=== PATIENT | male | born 1950 ===

== ENCOUNTER 2017-11-24 08:46 | Observation (INO) | payer BC ==
[2017-11-24 08:46] VITALS: BMI 25.1
[2017-11-24 10:02] LABS: BASO % 0.8 % (0.0-2.0); EOS # 0.2 K/uL (0.0-0.7); HEMOGLOBIN 14.4 g/dL (12.0-18.0); LYMPH # 1.7 K/uL (1.0-4.3); LYMPH % 29.7 % (20.0-40.0); MEAN CELL VOLUME 88.2 fl (80.0-94.0); MEAN CORPUSCULAR HEMOGLOBIN 29.4 pg (27.0-31.0); MEAN CORPUSCULAR HGB CONC 33.4 g/dL (33.0-37.0); MEAN PLATELET VOLUME 11.4 fl (7.2-11.7); MONO # 0.5 K/uL (0.0-0.8); MONO % 8.6 % (0.0-10.0); NEUT # 3.3 K/uL (1.8-7.0); NEUT % 56.9 % (50.0-75.0); NRBC % 0.1 % (0.0-0.0); RBC 4.88 Mil/uL (4.40-5.90); RED CELL DISTRIBUTION WIDTH 14.4 % (11.5-14.5); WHITE BLOOD COUNT 5.7 K/uL (4.8-10.8)
--- NOTE | 2017-11-24 10:08 | ED PDOC ---
Syncope/Near Syncope/Dizziness Time Seen by Provider: 11/24/17 09:18 Chief Complaint (Nursing): Dizziness/Lightheaded Chief Complaint (Provider): Dizziness/Lightheaded History Per: Patient History/Exam Limitations: no limitations Onset/Duration Of Symptoms: Days (greater than 12 hours ago, out of the time frame for TPA), Intermittent Episodes (x2 days) Current Symptoms Are (Timing): Still Present Additional Complaint(s): 67 year old male with medical history of HTN, presents to the emergency room for an evaluation of dizziness with room-spinning sensation since yesterday. Patient was accompanying a family member in the ED when he suddenly became dizzy and weak. He denies any head injury, chest pain, shortness of breath, fever, chills or vomiting. Patient states he has a right-sided headache that feels "like a balloon". He was able to eat 1 piece of bread prior to onset. PMD: Dr. Claude Yeung NIHSS Stroke Scale - Date/Time Evaluation Performed Date Performed: 11/24/17 Time Performed: 11:55 When Was NIHSS Performed: Baseline - How Severe is the Stroke Level of Consciousness: 0=Alert LOC to Questions: 0=Both comments correct LOC to commands: 0=Obeys both correctly Best Gaze: 0=Normal Visual: 0=No visual loss Facial: 0=Normal Motor Arm - Left: 0=No drift Motor Arm - Right: 0=No drift Motor Leg - Left: 0=No drift Motor Leg - Right: 0=No drift Limb Ataxia: 0=Absent Sensory: 0=Normal Best Language: 0=No aphasia Dysarthia: 0=Normal articulation Extinction & Inattention (Neglect): 0=Normal, no object Score: 0 Past Medical History Reviewed: Historical Data, Nursing Documentation, Vital Signs Vital Signs: Last Vital Signs Temp 98.1 F 11/24/17 09:11 Pulse 55 L 11/24/17 09:00 Resp 18 11/24/17 09:00 BP 146/83 11/24/17 09:00 Pulse Ox 98 11/24/17 09:00 - Medical History PMH: HTN, Hypercholesterolemia Denies: Chronic Kidney Disease - Surgical History Surgical History: Appendectomy - Family History Family History: States: Hypertension - Social History Current smoker - smoking cessation education provided: No Alcohol: None Drugs: Denies - Home Medications Home Medications: Ambulatory Orders Medication Instructions Recorded Aspirin [Aspirin Chewable] 81 mg PO DAILY #30 chew 11/26/17 Atorvastatin [Lipitor] 40 mg PO DAILY #30 tab 11/26/17 Clopidogrel [Plavix] 75 mg PO DAILY #30 tab 11/26/17 Losartan [Cozaar] 50 mg PO HS #30 tab 11/26/17 - Allergies Allergies/Adverse Reactions: Allergies Allergy/AdvReac Type Severity Reaction Status Date / Time egg Allergy RASH Verified 11/24/17 10:33 cortisone AdvReac RASH Verified 05/16/16 00:13 Review of Systems ROS Statement: Except As Marked, All Systems Reviewed And Found Negative Constitutional: Negative for: Fever, Chills Cardiovascular: Negative for: Chest Pain Respiratory: Negative for: Shortness of Breath Gastrointestinal: Negative for: Vomiting Neurological: Positive for: Headache (right-sided), Dizziness. Negative for: Other (head injury) Physical Exam - Reviewed Nursing Documentation Reviewed: Yes Vital Signs Reviewed: Yes - Physical Exam Appears: Positive for: Non-toxic, No Acute Distress Head Exam: Positive for: ATRAUMATIC, NORMAL INSPECTION, NORMOCEPHALIC Skin: Positive for: Normal Color Eye Exam: Positive for: Normal appearance ENT: Positive for: Normal ENT Inspection Neck: Positive for: Normal Cardiovascular/Chest: Positive for: Regular Rate, Rhythm, Chest Non Tender. Negative for: Murmur Respiratory: Positive for: Normal Breath Sounds. Negative for: Wheezing, Respiratory Distress Gastrointestinal/Abdominal: Positive for: Normal Exam, Soft. Negative for: Tenderness Back: Positive for: Normal Inspection Extremity: Positive for: Normal ROM (upper/lower with 5/5 strength). Negative for: Pedal Edema (bilateral), Deformity Neurologic/Psych: Positive for: Alert, nuclear technician II-XII (grossly intact), Oriented, Gait (stable). Negative for: Motor/Sensory Deficits, Aphasia, Facial Droop - Laboratory Results Result Diagrams: 11/24/17 09:53 11/24/17 09:53 - ECG O2 Sat by Pulse Oximetry: 98 (RA) Pulse Ox Interpretation: Normal Medical Decision Making Medical Decision Making: Initial Impression: Dizziness rule out stroke versus bleed pt has had symptoms for greater than 12 hours, closer to 24 hrs Initial Plan: * CT head without contrast * CMP * Troponin I * CBC * CXR * Antivert 25mg PO Time: 937 --Old charts reviewed: patient was evaluated in ED for a similar syncopal episode, secondary to medication effects. Time: 956 --Labs: no significant abnormality. Time: 1059 --CT head FINDINGS: HEMORRHAGE: No intracranial hemorrhage. BRAIN: Age related neuro degenerative findings including atrophy and microangiopathy are again identified diffusely and are stable. 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 No additional significant interval findings are appreciated including cortical edema. Posterior fossa contents appear stable as well as the brainstem. No suspicious extra-axial fluid collection identified. VENTRICLES: Unremarkable. No hydrocephalus. CALVARIUM: Unremarkable. PARANASAL SINUSES: Unremarkable as visualized. No significant inflammatory changes. MASTOID AIR CELLS: Unremarkable as visualized. No inflammatory changes. OTHER FINDINGS: None. IMPRESSION: No definitive acute CT intracranial findings although an interval but chronic small infarct is noted at the right basal ganglia superiorly. Age-appropriate age related neuro degenerative findings are reiterated. Time: 1148 --Discussed case with Dr. Yeung. --I gave ASA and called neurologist, Dr. Hanson as per Anjana --Patient made aware of all results and plan. States he is feeling slightly better after Meclizine. he is agreeable to admission. --Call made out to Dr. Hanson, he is away, awaiting coverage call back.. pt will need admission to rule out cerebellar stroke. Scribe Attestation: Documented by Daisy Patterson, acting as a scribe for Mello Reddy MD. Provider Scribe Attestation: All medical record entries made by the Scribe were at my direction and personally dictated by me. I have reviewed the chart and agree that the record accurately reflects my personal performance of the history, physical exam, medical decision making, and the department course for this patient. I have also personally directed, reviewed, and agree with the discharge instructions and disposition. Disposition - Clinical Impression Clinical Impression: Dizziness - Patient ED Disposition Is Patient to be Admitted: Yes Counseled Patient/Family Regarding: Studies Performed, Diagnosis - Disposition Disposition Time: 11:45 Condition: STABLE
[2017-11-24 10:20] LABS: ALB/GLOB RATIO 1.4 (1.0-2.1); ALT/SGPT 27 U/L (21-72); AST/SGOT 23 U/L (17-59); BLOOD UREA NITROGEN 18 mg/dl (9-20); CALCIUM 9.5 mg/dL (8.4-10.2); GFR AFRICAN-AMERICAN > 60; GFR NON-AFRICAN AMERICAN > 60
--- NOTE | 2017-11-24 11:01 | CT ---
Date of service: 11/24/2017 PROCEDURE: CT HEAD WITHOUT CONTRAST. HISTORY: headache COMPARISON: Noncontrast head CT 05/15/2016. TECHNIQUE: Axial computed tomography images were obtained through the head/brain without intravenous contrast. Radiation dose: Total exam DLP = 831.79 mGy-cm. This CT exam was performed using one or more of the following dose reduction techniques: Automated exposure control, adjustment of the mA and/or kV according to patient size, and/or use of iterative reconstruction technique. FINDINGS: HEMORRHAGE: No intracranial hemorrhage. BRAIN: Age related neuro degenerative findings including atrophy and microangiopathy are again identified diffusely and are stable. 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 No additional significant interval findings are appreciated including cortical edema. Posterior fossa contents appear stable as well as the brainstem. No suspicious extra-axial fluid collection identified. VENTRICLES: Unremarkable. No hydrocephalus. CALVARIUM: Unremarkable. PARANASAL SINUSES: Unremarkable as visualized. No significant inflammatory changes. MASTOID AIR CELLS: Unremarkable as visualized. No inflammatory changes. OTHER FINDINGS: None. IMPRESSION: No definitive acute CT intracranial findings although an interval but chronic small infarct is noted at the right basal ganglia superiorly. Age-appropriate age related neuro degenerative findings are reiterated.
--- NOTE | 2017-11-24 13:23 | RAD ---
Date of service: 11/24/2017 HISTORY: Dizziness. COMPARISON: 05/15/2016. FINDINGS: LUNGS: No active pulmonary disease. PLEURA: No significant pleural effusion identified, no pneumothorax apparent. CARDIOVASCULAR: No radiographic findings to suggest acute or significant cardiovascular disease. OSSEOUS STRUCTURES: No significant abnormalities. VISUALIZED UPPER ABDOMEN: Normal. OTHER FINDINGS: None. IMPRESSION: No active disease. No significant interval change compared to the prior examination(s).
[2017-11-24] MEDS ORDERED: AMLODIPIN PO SCH (22:00)
[2017-11-24] MEDS ORDERED: OLMESARTAN PO SCH (22:00)
[2017-11-24] MEDS ORDERED: HCTHIAZID PO SCH (22:00)
[2017-11-24] MEDS ORDERED: [UNRECOGNIZED DRUG - OTHER] PO SCH (22:00)
--- NOTE | 2017-11-25 08:56 | CP.PCM.HP ---
<Ira Fagan - Last Filed: 11/25/17 17:15> History of Present Illness - History of Present Illness History of Present Illness: HPI: 67 YO male with PMHx of HTN and HLD presented to [facility] ED for dizziness and syncope. Pt states that his dizziness started Friday but was not bad, but Friday in the morning while praying pt experienced an episode of syncope where he "blacked-out" for a few seconds. Pt had 3x episodes in total yesterday where he fell like he would fall over due to dizziness. Denies fecal or urinary incontinence, abnormal movements, eye rolling or tongue biting. No n/v/d/c, chest pain, dyspnea, palpitations, chills, fever, weight changes. PMD; Dr. Yeung PMHx: HTN, GLD SurgHx: ex lap, appendectomy SHx: denies ETOH, smoking and illicit drug use Allergies: Eggs and cortisone --rash Present on Admission - Present on Admission Any Indicators Present on Admission: No Review of Systems - Constitutional Constitutional: Headache. absent: Chills, Fever - Cardiovascular Cardiovascular: absent: Chest Pain, Dyspnea, Palpitations - Respiratory Respiratory: absent: Cough, Dyspnea, Dyspnea on Exertion - Gastrointestinal Gastrointestinal: absent: Abdominal Pain, Constipation, Diarrhea - Genitourinary Genitourinary: absent: Difficulty Urinating, Dysuria, Hematuria - Musculoskeletal Musculoskeletal: absent: Abnormal Gait - Neurological Neurological: absent: Dizziness, Numbness Past Patient History - Past Medical History & Family History Past Medical History?: Yes - Past Social History Smoking Status: Never Smoked Alcohol: None Drugs: Denies - CARDIAC Hx Hypercholesterolemia: Yes Hx Hypertension: Yes - PULMONARY Hx Respiratory Disorders: No - NEUROLOGICAL Hx Neurological Disorder: No - HEENT Hx HEENT Problems: No - RENAL Hx Chronic Kidney Disease: No - ENDOCRINE/METABOLIC Hx Endocrine Disorders: No - HEMATOLOGICAL/ONCOLOGICAL Hx Blood Disorders: No Hx AIDS: No Hx Human Immunodeficiency Virus (HIV): No - INTEGUMENTARY Hx Dermatological Problems: No - MUSCULOSKELETAL/RHEUMATOLOGICAL Hx Musculoskeletal Disorders: No Hx Falls: No Other/Comment: broken ribs 2001 - GASTROINTESTINAL Hx Gastrointestinal Disorders: No - GENITOURINARY/GYNECOLOGICAL Hx Genitourinary Disorders: No - PSYCHIATRIC Hx Psychophysiologic Disorder: No Hx Substance Use: No - SURGICAL HISTORY Hx Appendectomy: Yes - ANESTHESIA Hx Anesthesia: Yes Hx Anesthesia Reactions: No Hx Malignant Hyperthermia: No Meds Allergies/Adverse Reactions: Allergies Allergy/AdvReac Type Severity Reaction Status Date / Time egg Allergy RASH Verified 11/24/17 10:33 cortisone AdvReac RASH Verified 05/16/16 00:13 Physical Exam - Constitutional Appears: No Acute Distress - Head Exam Head Exam: ATRAUMATIC, NORMAL INSPECTION - Eye Exam Eye Exam: EOMI, Normal appearance - ENT Exam ENT Exam: Mucous Membranes Moist - Respiratory Exam Respiratory Exam: Clear to Auscultation Bilateral, NORMAL BREATHING PATTERN. absent: Rales, Wheezes - Cardiovascular Exam Cardiovascular Exam: Bradycardia, REGULAR RHYTHM, +S1, +S2 - GI/Abdominal Exam GI & Abdominal Exam: Normal Bowel Sounds, Soft. absent: Tenderness - Extremities Exam Extremities exam: Positive for: normal inspection. Negative for: pedal edema - Neurological Exam Neurological exam: Alert, CN II-XII Intact, Oriented x3 - Psychiatric Exam Psychiatric exam: Normal Affect, Normal Mood Results - Vital Signs Recent Vital Signs: Last Vital Signs Temp 97.6 F 11/25/17 08:00 Pulse 48 L 11/25/17 08:00 Resp 20 11/25/17 08:00 BP 151/83 H 11/25/17 08:00 Pulse Ox 99 11/25/17 08:00 - Labs Result Diagrams: 11/24/17 09:53 11/24/17 09:53 Labs: Laboratory Results - last 24 hr 11/24/17 11/24/17 11/24/17 09:01 09:53 09:53 WBC 5.7 RBC 4.88 Hgb 14.4 Hct 43.0 MCV 88.2 MCH 29.4 MCHC 33.4 RDW 14.4 Plt Count 159 MPV 11.4 Neut % (Auto) 56.9 Lymph % (Auto) 29.7 Dodge % (Auto) 8.6 Eos % (Auto) 4.0 Baso % (Auto) 0.8 Neut # (Auto) 3.3 Lymph # (Auto) 1.7 Dodge # (Auto) 0.5 Eos # (Auto) 0.2 Baso # (Auto) 0.0 Sodium 140 Potassium 3.9 Chloride 103 Carbon Dioxide 27 Anion Gap 14 BUN 18 Creatinine 0.8 Est GFR ( Amer) > 60 Est GFR (Non-Af Amer) > 60 POC Glucose (mg/dL) 131 H Random Glucose 124 H Calcium 9.5 Total Bilirubin 0.9 AST 23 ALT 27 Alkaline Phosphatase 33 L Troponin I < 0.0120 Total Protein 6.9 Albumin 4.0 Globulin 2.9 Albumin/Globulin Ratio 1.4 Assessment & Plan (1) Hypertension Status: Chronic (2) Hyperlipemia Status: Chronic (3) Syncope Status: Acute - Assessment and Plan (Free Text) Assessment: Assessment/Plan: 67 YO male with PMHx of HTN and HLD is admitted for syncope and dizziness. -VS sig for bradycardia on tele -stat EKG, trops, echo; trops x 1 neg -neurology on board -cardiology consulted -Labs reviewed -CT head no acute findings; chronic small infract in R basal ganglia -CXR no acute pathology -MRI head, carotid u/s pending -plan as ordered Pt seen and examined with Dr. Yeung <Claude Yeung - Last Filed: 11/26/17 06:46> Results - Vital Signs Recent Vital Signs: Last Vital Signs Temp 97.7 F 11/26/17 04:44 Pulse 43 L 11/26/17 04:44 Resp 18 11/26/17 04:44 BP 145/78 11/26/17 04:44 Pulse Ox 98 11/26/17 04:44 - Labs Result Diagrams: 11/24/17 09:53 11/24/17 09:53 Labs: Laboratory Results - last 24 hr 11/25/17 11/25/17 09:54 21:00 Troponin I < 0.0120 Triglycerides 269 H D Cholesterol 183 LDL Cholesterol Direct 95 HDL Cholesterol 34 Assessment & Plan - Assessment and Plan (Free Text) Plan: I was present during evaluation and discussed with Dr Gracia richard plans of care and tx. Claude Yeung M.D.
--- NOTE | 2017-11-25 12:28 | CARD ---
APPROVED REPORT Date of service: 11/25/2017 EKG Measurement Heart [id number] <Conclusion> Sinus bradycardia Minimal voltage criteria for LVH, may be normal variant Borderline ECG
--- NOTE | 2017-11-25 16:46 | CARD ---
APPROVED REPORT Date of service: 11/25/2017 EXAM: Two-dimensional and M-mode echocardiogram with Doppler and color Doppler. Other Information Quality : GoodRhythm : Bradycardia INDICATION Abnormal EKG/Arrhythmia 2D DIMENSIONS IVSd1.04 (0.7-1.1cm)LVDd5.09 (3.9-5.9cm) LVOT Diameter2.32 (1.8-2.4cm)PWd0.84 (0.7-1.1cm) IVSs1.18 (0.8-1.2cm)LVDs3.36 (2.5-4.0cm) FS (%) 33.9 %PWs1.14 (0.8-1.2cm) M-Mode DIMENSIONS Left Atrium (MM)3.68 (2.5-4.0cm)IVSd1.12 (0.7-1.1cm) Aortic Root3.21 (2.2-3.7cm)LVDd4.85 (4.0-5.6cm) Aortic Cusp Exc.1.91 (1.5-2.0cm)PWd1.09 (0.7-1.1cm) IVSs1.29 cmFS (%) 35 % LVDs3.15 (2.0-3.8cm)PWs1.38 cm Aortic Valve AoV Peak Tbtpxdkn306.8cm/sAoV VTI30.2cmAO Peak GR.8mmHg LVOT Peak Aftmbhfp116.3cm/sLVOT VTI21.41cmAO Mean GR.4mmHg JAZIEL (VMAX)1.44do9OKS (VTI)1.68cm2 Mitral Valve MV E Kjbcwptg30.6cm/sMV DECEL [id number] A Eahtlynd03.4cm/s MV NRK95vjI/A ratio1.1MVA (PHT)3.37cm2 TDI Lateral E' Peak V9.53cm/sMedial E' Peak V7.66cm/sE/Lateral E'7.3 E/Medial E'9.1 Tricuspid Valve TR Peak Rmkamckf080vc/sRAP AKMMGKSM98siMvYH Peak Gr.19mmHg BLOQ91qgTj LEFT VENTRICLE The left ventricle is normal size. There is normal left ventricular wall thickness. The left ventricular function is normal. The left ventricular ejection fraction is within the normal range. LVEF 65% (NORMAL) There is normal LV segmental wall motion. The left ventricular diastolic function is normal. No left ventricle thrombus noted on this study. There is no ventricular septal defect visualized. There is no left ventricular aneurysm. There is no mass noted in the left ventricle. RIGHT VENTRICLE The right ventricle is normal size. There is normal right ventricular wall thickness. The right ventricular systolic function is normal. ATRIA The left atrium size is normal. The right atrium size is normal. The interatrial septum is intact with no evidence for an atrial septal defect. AORTIC VALVE The aortic valve has minor calcification but opens well. No aortic regurgitation is present. There is no aortic valvular stenosis. There is no aortic valvular vegetation. MITRAL VALVE The mitral valve is normal in structure. There is no evidence of mitral valve prolapse. There is no mitral valve stenosis. There is no mitral valve regurgitation noted. TRICUSPID VALVE The tricuspid valve is normal in structure. There is mild tricuspid regurgitation. Peak regurgitation doppler pressure is 19 mmHg There is no tricuspid valve prolapse or vegetation. There is no tricuspid valve stenosis. PULMONIC VALVE The pulmonary valve is normal in structure. There is no pulmonic valvular regurgitation. There is no pulmonic valvular stenosis. GREAT VESSELS The aortic root is normal in size. The IVC is normal in size and collapses >50% with inspiration. PERICARDIAL EFFUSION The pericardium appears normal. There is no pleural effusion. <Conclusion> The left ventricle is normal size. There is normal left ventricular wall thickness. The left ventricular function is normal. The left ventricular ejection fraction is within the normal range. LVEF 65% (NORMAL) The aortic valve has minor calcification but opens well. There is mild tricuspid regurgitation.
--- NOTE | 2017-11-25 20:04 | CP.PCM.CON ---
History of Present Illness - History of Present Illness History of Present Illness: I was asked to evaluate patient by Dr Yeung. Patient is a 67 year old male with a history of HTN, hypercholesterolemia, who presejnts with dizziness. symptoms began about 3 days ago. He was admitted with dizziness. 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 he denies chest pain. Review of Systems - Constitutional Constitutional: absent: As Per HPI, Anorexia, Chills, Daytime Sleepiness, Excessive Sweating, Fatigue, Fever, Frequent Falls, Headache, Increased Appetite , Lethargy, Malaise, Night Sweats, Snoring, Sleep Apnea, Weight Gain, Weight Loss, Weakness, Other - EENT Eyes: absent: As Per HPI, Blind Spots, Blurred Vision, Change in Vision, Decreased Night Vision, Diplopia, Discharge, Dry Eye, Exophthalmos, Floaters, Irritation, Itchy Eyes, Loss of Peripheral Vision, Pain, Photophobia, Requires Corrective Lenses, Sees Flashes, Spots in Vision, Tunnel Vision, Other Visual Disturbances, Loss of Vision, Other Ears: absent: As Per HPI, Decreased Hearing, Ear Discharge, Ear Pain, Tinnitus, Abnormal Hearing, Disequilibrium, Dizziness, Other Nose/Mouth/Throat: absent: As Per HPI, Epistaxis, Nasal Congestion, Nasal Discharge, Nasal Obstruction, Nasal Trauma, Nose Pain, Post Nasal Drip, Sinus Pain, Sinus Pressure, Bleeding Gums, Change in Voice, Dental Pain, Dry Mouth, Dysphagia, Halitosis, Hoarsness, Lip Swelling, Mouth Lesions, Mouth Pain, Odynophagia, Sore Throat, Throat Swelling, Tongue Swelling, Facial Pain, Neck Pain, Neck Mass, Other - Cardiovascular Cardiovascular: Syncope - Respiratory Respiratory: absent: As Per HPI, Cough, Dyspnea, Hemoptysis, Dyspnea on Exertion , Wheezing, Snoring, Stridor, Pain on Inspiration, Chest Congestion, Excessive Mucous Production, Change in Mucous Color, Pain with Coughing, Other - Gastrointestinal Gastrointestinal: absent: As Per HPI, Abdominal Pain, Belching, Bloating, Change in Bowel Habits, Change in Stool Character, Coffee Ground Emesis, Constipation, Cramping, Diarrhea, Dyspepsia, Dysphagia, Early Satiety, Excessive Flatus, Fecal Incontinence, Heartburn, Hematemesis, Hematochezia, Loose Stools, Melena, Nausea, Odynophagia, Temesmus, Vomiting, Other - Musculoskeletal Musculoskeletal: absent: As Per HPI, Abnormal Gait, Arthralgias, Atrophy, Back Pain, Deformity, Joint Swelling, Limited Range of Motion, Loss of Height, Muscle Cramps, Muscle Weakness, Myalgias, Neck Pain, Numbness, Radiating Pain into Limb, Stiffness, Tingling, Other - Integumentary Integumentary: absent: As Per HPI, Acne, Alopecia, Bleeding Lesions, Change in Hair, Change in Nails, Change in Pigmentation, Changing Lesions, Dry Skin, Erythema, Furuncle, Hirsutism, Lesions, New Lesions, Non-Healing Lesions, Photosensitivity, Pruritus, Rash, Skin Pain, Skin Ulcer, Sores, Striae, Swelling , Unusual Bruising, Wounds, Jaundice, Other - Neurological Neurological: absent: As Per HPI, Abnormal Gait, Abnormal Hearing, Abnormal Movements, Abnormal Speech, Behavioral Changes, Burning Sensations, Confusion, Convulsions, Disequilibrium, Dizziness, Numbness, Focal Weakness, Frequent Falls , Headaches, Lack of Coordination, Loss of Vision, Memory Loss, Paresthesias, Radicular Pain, Restless Legs, Sensory Deficit, Syncope, Tingling, Tremor, Vertigo, Weakness, Other Visual Disturbances, Other - Psychiatric Psychiatric: absent: As Per HPI, Abnormal Sleep Pattern, Anhedonia, Anxiety, Auditory Hallucinations, Behavioral Changes, Change in Appetite, Change in Libido, Confusion, Depression, Difficulty Concentrating, Hallucinations, Homicidal Ideation, Hopelessness, Irritability, Memory Loss, Mood Swings, Panic Attacks, Paranoia, Suicidal Ideation, Visual Hallucinations, Tactile Hallucinations, Other - Endocrine Endocrine: absent: As Per HPI, Change in Body Appearance, Change in Libido, Cold Intolorance, Deepening of Voice, Excessive Sweating, Fatigue, Flushing, Heat Intolorance, Increase in Ring/Shoe/Hat Size, Palpitations, Polydipsia, Polyphagia, Polyuria, Other - Hematologic/Lymphatic Hematologic: absent: As Per HPI, Easy Bleeding, Easy Bruising, Lymphadenopathy, Other Past Patient History - Past Medical History & Family History Past Medical History?: Yes - Past Social History Smoking Status: Never Smoked Alcohol: None Drugs: Denies - CARDIAC Hx Hypercholesterolemia: Yes Hx Hypertension: Yes - PULMONARY Hx Respiratory Disorders: No - NEUROLOGICAL Hx Neurological Disorder: No - HEENT Hx HEENT Problems: No - RENAL Hx Chronic Kidney Disease: No - ENDOCRINE/METABOLIC Hx Endocrine Disorders: No - HEMATOLOGICAL/ONCOLOGICAL Hx Blood Disorders: No Hx AIDS: No Hx Human Immunodeficiency Virus (HIV): No - INTEGUMENTARY Hx Dermatological Problems: No - MUSCULOSKELETAL/RHEUMATOLOGICAL Hx Musculoskeletal Disorders: No Hx Falls: No Other/Comment: broken ribs 2000 - GASTROINTESTINAL Hx Gastrointestinal Disorders: No - GENITOURINARY/GYNECOLOGICAL Hx Genitourinary Disorders: No - PSYCHIATRIC Hx Psychophysiologic Disorder: No Hx Substance Use: No - SURGICAL HISTORY Hx Appendectomy: Yes - ANESTHESIA Hx Anesthesia: Yes Hx Anesthesia Reactions: No Hx Malignant Hyperthermia: No Meds Allergies/Adverse Reactions: Allergies Allergy/AdvReac Type Severity Reaction Status Date / Time egg Allergy RASH Verified 11/24/17 10:33 cortisone AdvReac RASH Verified 05/16/16 00:13 - Medications Medications: Current Medications Amlodipine Besylate (Norvasc) 5 mg PO [facility] Last Admin: 11/24/17 22:26 Dose: 5 mg Aspirin (Aspirin Chewable) 81 mg PO DAILY [facility] Last Admin: 11/25/17 09:17 Dose: 81 mg Atorvastatin Calcium (Lipitor) 20 mg PO DAILY [facility] Last Admin: 11/25/17 09:19 Dose: Not Given Clopidogrel Bisulfate (Plavix) 75 mg PO DAILY [facility] Hydrochlorothiazide (Microzide) 12.5 mg PO [facility] Last Admin: 11/24/17 22:26 Dose: 12.5 mg Losartan Potassium (Cozaar) 50 mg PO [facility] Last Admin: 11/24/17 22:21 Dose: Not Given Physical Exam - Constitutional Appears: Non-toxic - Head Exam Head Exam: NORMAL INSPECTION - Eye Exam Eye Exam: Normal appearance - ENT Exam ENT Exam: Mucous Membranes Moist - Neck Exam Neck exam: Positive for: Full Rom - Respiratory Exam Respiratory Exam: NORMAL BREATHING PATTERN - Cardiovascular Exam Cardiovascular Exam: REGULAR RHYTHM - GI/Abdominal Exam GI & Abdominal Exam: Normal Bowel Sounds - Rectal Exam Rectal Exam: Deferred - Extremities Exam Extremities exam: Negative for: pedal edema - Back Exam Back exam: NORMAL INSPECTION - Neurological Exam Neurological exam: Alert, Oriented x3 - Psychiatric Exam Psychiatric exam: Normal Affect - Skin Skin Exam: Normal Color Results - Vital Signs Recent Vital Signs: Last Vital Signs Temp 98.2 F 11/25/17 15:58 Pulse 44 L 11/25/17 15:58 Resp 20 11/25/17 15:58 BP 160/81 H 11/25/17 15:58 Pulse Ox 98 11/25/17 15:58 - Labs Result Diagrams: 11/24/17 09:53 11/24/17 09:53 Labs: Laboratory Results - last 24 hr 11/25/17 09:54 Troponin I < 0.0120 - EKG Data EKG Interpreted by: Myself EKG shows normal: Sinus rhythm Assessment & Plan (1) CVA (cerebral vascular accident) Assessment and Plan: placed on Plavix. consider statin Status: Acute (2) Hyperlipemia Assessment and Plan: statin therapy is recommended Status: Chronic (3) Hypertension Assessment and Plan: blood pressure control Status: Chronic
[2017-11-25 21:46] LABS: HDL CHOLESTEROL 34 MG/DL (30-70)
[2017-11-25 21:57] LABS: LDL CHOLESTEROL 95 mg/dL (0-129)
--- NOTE | 2017-11-26 05:42 | CON ---
DATE: 11/25/2017 NEUROLOGY CONSULTATION REASON FOR CONSULTATION: Dizziness. HISTORY OF PRESENTING ILLNESS: The patient is a 57-year-old male who has been asked for evaluation of dizziness. The patient apparently started experiencing dizziness two days ago. Yesterday morning while , the patient experienced episode of almost passing out, felt that he was blacked out for a few seconds. He had three episodes yesterday. He felt like he was going to fall because of dizziness. Dizziness is described as lightheaded feeling and sometimes loss of balance. He denies any focal weakness in the arms or legs. As his symptoms are persistent, he decided to come to the hospital. The patient is still experiencing loss of balance. There is no focal weakness in the arms or legs. REVIEW OF SYSTEMS: Denies any headaches, chest pain, shortness of breath, abdominal pain, constipation, diarrhea, dysuria, pyuria, cough, or sputum production. PAST MEDICAL HISTORY: Includes hypertension. PAST SURGICAL HISTORY: Includes appendectomy. SOCIAL HISTORY: Denies smoking, use of alcohol or illicit drugs. ALLERGIES: TO CORTISONE. FAMILY HISTORY: Noncontributory. MEDICATIONS: At home include aspirin and Tribenzor. PHYSICAL EXAMINATION: GENERAL: The patient is a middle-aged male, sitting in no acute distress. VITAL SIGNS: His blood pressure is 160/81, heart rate is 44 per minute, breathing at the rate of 16 per minute, and his temperature is 98.2 degrees Fahrenheit. HEENT: Head is normocephalic and atraumatic. NECK: Supple. There are no carotid bruits. LUNGS: Clear. CVS: S1 and S2 audible. No murmurs. ABDOMEN: Soft and nontender with bowel sounds. NEUROLOGIC EXAMINATION: Mental status: The patient is awake, alert, oriented to time, place, and person. Speech is fluent. Naming and repetition normal. Memory and cognition are intact. Cranial nerve exam: Pupils are 3 mm bilaterally reactive to light. Extraocular movements are intact. There is positive horizontal nystagmus noted towards the left eye. There is no facial asymmetry. Palate is upgoing bilaterally and tongue is midline. Motor Examination: Tone is normal. Power is 5/5 bilaterally in all extremities. Reflexes +2 and symmetrical. Plantars are downgoing bilaterally. Cerebellar Examination: [id number] shows no dysmetria. Gait is narrow based. Sensory Examination: Intact to soft touch and pinprick and vibration. LABORATORY DATA: Labs reviewed, shows WBC 5.7, hemoglobin 14.4, hemoglobin 43, and platelets of 159. Sodium is 140, potassium 3.9, chloride 103, carbon dioxide 27, BUN of 18, creatinine of 0.8, and glucose of 124. The patient had a CT scan of the head done, which shows no definite acute CT intracranial abnormality, chronic small infarct in the right basal ganglia. The patient also had an MRI of the brain, which I personally reviewed and it shows acute right cerebellar infarct. IMPRESSION: Cerebrovascular accident involving right cerebellum causing the patient to have dizziness. RECOMMENDATIONS: 1. The patient had an echocardiogram done, which shows no thrombus, ejection fraction of 65%. 2. The patient did have a carotid Doppler study. 3. The patient is currently on aspirin 81 mg. We will add Plavix 75 mg once a day. 4. The patient to be continued on statin. 5. The patient to have fasting lipid profile. 6. The patient is not a candidate for TPA administration because he is out of time window for TPA administration. 7. The patient to have physical therapy and occupational therapy evaluation. 8. The patient's blood pressure to be controlled. 9. Please continue supportive care treatment. Thank you for the opportunity to participate in the care of this patient. Nikole Oconnor MD
[2017-11-26 08:50] VITALS: RESP 20
--- NOTE | 2017-11-26 10:40 | CP.PCM.DIS ---
Provider - Provider Date of Admission: 11/24/17 11:55 Attending physician: Claude Yeung MD Time Spent in preparation of Discharge (in minutes): 20 Diagnosis - Discharge Diagnosis (1) Hypertension Status: Chronic (2) Hyperlipemia Status: Chronic (3) Syncope Status: Acute (4) CVA (cerebral vascular accident) Status: Acute Hospital Course - Lab Results Lab Results: Most Recent Lab Values WBC 5.7 K/uL (4.8-10.8) 11/24/17 09:53 RBC 4.88 Mil/uL (4.40-5.90) 11/24/17 09:53 Hgb 14.4 g/dL (12.0-18.0) 11/24/17 09:53 Hct 43.0 % (35.0-51.0) 11/24/17 09:53 MCV 88.2 fl (80.0-94.0) 11/24/17 09:53 MCH 29.4 pg (27.0-31.0) 11/24/17 09:53 MCHC 33.4 g/dL (33.0-37.0) 11/24/17 09:53 RDW 14.4 % (11.5-14.5) 11/24/17 09:53 Plt Count 159 K/uL (130-400) 11/24/17 09:53 MPV 11.4 fl (7.2-11.7) 11/24/17 09:53 Neut % (Auto) 56.9 % (50.0-75.0) 11/24/17 09:53 Lymph % (Auto) 29.7 % (20.0-40.0) 11/24/17 09:53 [place] % (Auto) 8.6 % (0.0-10.0) 11/24/17 09:53 Eos % (Auto) 4.0 % (0.0-4.0) 11/24/17 09:53 Baso % (Auto) 0.8 % (0.0-2.0) 11/24/17 09:53 Neut # (Auto) 3.3 K/uL (1.8-7.0) 11/24/17 09:53 Lymph # (Auto) 1.7 K/uL (1.0-4.3) 11/24/17 09:53 [place] # (Auto) 0.5 K/uL (0.0-0.8) 11/24/17 09:53 Eos # (Auto) 0.2 K/uL (0.0-0.7) 11/24/17 09:53 Baso # (Auto) 0.0 K/uL (0.0-0.2) 11/24/17 09:53 Sodium 140 mmol/l (132-148) 11/24/17 09:53 Potassium 3.9 MMOL/L (3.6-5.0) 11/24/17 09:53 Chloride 103 mmol/L (98-107) 11/24/17 09:53 Carbon Dioxide 27 mmol/L (22-30) 11/24/17 09:53 Anion Gap 14 (10-20) 11/24/17 09:53 BUN 18 mg/dl (9-20) 11/24/17 09:53 Creatinine 0.8 mg/dl (0.8-1.5) 11/24/17 09:53 Est GFR ( Amer) > 60 11/24/17 09:53 Est GFR (Non-Af Amer) > 60 11/24/17 09:53 POC Glucose (mg/dL) 131 mg/dL (65-110) H 11/24/17 09:01 Random Glucose 124 mg/dL (75-110) H 11/24/17 09:53 Calcium 9.5 mg/dL (8.4-10.2) 11/24/17 09:53 Total Bilirubin 0.9 mg/dl (0.2-1.3) 11/24/17 09:53 AST 23 U/L (17-59) 11/24/17 09:53 ALT 27 U/L (21-72) 11/24/17 09:53 Alkaline Phosphatase 33 U/L (38-126) L 11/24/17 09:53 Troponin I < 0.0120 ng/mL (0.00-0.120) 11/25/17 09:54 Total Protein 6.9 G/DL (6.3-8.2) 11/24/17 09:53 Albumin 4.0 g/dL (3.5-5.0) 11/24/17 09:53 Globulin 2.9 gm/dL (2.2-3.9) 11/24/17 09:53 Albumin/Globulin Ratio 1.4 (1.0-2.1) 11/24/17 09:53 Triglycerides 269 mg/DL (0-149) H D 11/25/17 21:00 Cholesterol 183 mg/dL (0-199) 11/25/17 21:00 LDL Cholesterol Direct 95 mg/dL (0-129) 11/25/17 21:00 HDL Cholesterol 34 MG/DL (30-70) 11/25/17 21:00 - Hospital Course Hospital Course: 67 YO male with PMHx of HTN and HLD is admitted for syncope and dizziness. Neurology and cardiology was consulted. On initial imaging, CT head no acute ischemia or hemorrhage noted, but on subsequent MRI brain sig for acute ischemic infract in right cerebellum. TPA was not administered due to time constraint. Per neurology pt started on Plavix. Pt ambulating, and without weakness or acute findings. Medications were adjusted, and pt cleared by Neurology and Cardiology for d/c home. Will d/c home with follow up with Dr. Yeung in 1 week. Discharge Exam - Head Exam Head Exam: NORMAL INSPECTION - Eye Exam Eye Exam: EOMI, Normal appearance - ENT Exam ENT Exam: Mucous Membranes Moist - Respiratory Exam Respiratory Exam: Clear to PA & Lateral, NORMAL BREATHING PATTERN. absent: Rhonchi, Wheezes - Cardiovascular Exam Cardiovascular Exam: Bradycardia, REGULAR RHYTHM, +S1, +S2 - GI/Abdominal Exam GI & Abdominal Exam: Normal Bowel Sounds, Soft. absent: Tenderness - Extremities Exam Extremities exam: normal inspection - Neurological Exam Neurological exam: Alert, CN II-XII Intact, Normal Gait, Oriented x3 Discharge Plan - Discharge Medications Prescriptions: Aspirin [Aspirin Chewable] 81 mg PO DAILY #30 chew Atorvastatin [Lipitor] 40 mg PO DAILY #30 tab Clopidogrel [Plavix] 75 mg PO DAILY #30 tab Losartan [Cozaar] 50 mg PO HS #30 tab - Follow Up Plan Condition: STABLE Disposition: HOME/ ROUTINE Additional Instructions: pt. cleared for discharge to Home today by , E rx for meds sent to [facility] pharmacy pt. instructed to discontinue hctz, norvasc f/u with and outpatient Referrals: Claude Yeung MD [Family Provider] - Star Mandel MD [Staff Provider] -
[2017-11-26 10:41] LABS: T4 8.36 ug/dl (5.5-11.0)
--- NOTE | 2017-11-26 10:53 | MRI ---
Date of service: 11/25/2017 PROCEDURE: MRI BRAIN WITHOUT CONTRAST HISTORY: Dizziness COMPARISON: Noncontrast Head CT 11/24/2017. TECHNIQUE: Multiplanar, multisequence MR images of the brain were obtained without intravenous contrast enhancement. FINDINGS: HEMORRHAGE: Limited punctate hemosiderin deposition is appreciated with a solitary focus at the right temporal lobe, 2 left thalamic and solitary left frontal focus. A similar focus is present in the upper left basal ganglia. 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 These are not visible in the prior CT 11/24/2017. DWI: Limited restricted diffusion is appreciated the right cerebellum in multiple small variably sized foci measuring up to 1.5 cm greatest dimension compatible with mild acute infarction. No supratentorial or brainstem infarction appreciated on acute or subacute basis. BRAIN PARENCHYMA: A chronic lacune is seen at the right basal ganglia superiorly. There is relatively prominent white matter signal abnormality identified surround the periventricular white matter and extending into the sub cortical and centrum semiovale white matter superiorly. Follows may reflect chronic microangiopathy. Other white-matter disorders are not completely excluded underlying this process which is somewhat more than expected for 67-year-old patient. Clinically correlate further. The corpus callosum nevertheless appears uninvolved and is intact. VENTRICLES: Unremarkable. No hydrocephalus. CRANIUM: Unremarkable. ORBITS: Grossly unremarkable. PARANASAL SINUSES/MASTOIDS: Mucosal inflammatory changes right greater than left ethmoid air cells as well as right greater than left frontal sinuses VASCULAR SYSTEM: Skull base flow voids intact. OTHER FINDINGS: None. IMPRESSION: 1. Small acute or subacute infarct right cerebellum in various sub cm foci predominantly with the largest area however measuring 1.5 cm. No mass-effect or additional acute subacute infarct identified. 2. Relatively prominent chronic microangiopathy though other underlying white matter disease may be present given its relatively prominent appearance. 3. There are few cavernomata seen the left greater than right cerebral hemispheres as discussed above. Findings discussed with Dr. Yeung 11/26/17, 10:45 a.m. with written and read back verification.
[2017-11-26 10:54] LABS: T3 1.1 nmol/L (1.49-2.60)
--- NOTE | 2017-11-26 11:57 | US ---
Date of service: 11/26/2017 PROCEDURE: Duplex ultrasound of the carotid and vertebral arteries. HISTORY: Dizziness COMPARISON: None available. TECHNIQUE: Grayscale and duplex Doppler evaluation of the cervical carotid and vertebral arteries were performed. The common carotid, carotid bifurcations and cervical ICA and proximal ECA were evaluated. The vertebral arteries were evaluated for gross patency and direction. FINDINGS: RIGHT CAROTID ARTERIES: Common Carotid Artery: Normal. Maximal flow velocity of 82.3 cm/s. Carotid Bifurcation: Normal. Internal Carotid Artery:Normal. Maximal flow velocity of 85.6 cm/s. External Carotid Artery (proximal branches): Normal. Maximal flow velocity of 74.3 cm/s. ICA/CCA Ratio: 1.0 LEFT CAROTID ARTERIES: Common Carotid Artery: Normal. Maximal flow velocity of 16.0 cm/s. Carotid Bifurcation: Normal. Internal Carotid Artery:Normal. Maximal flow velocity of 20.4 cm/s. External Carotid Artery (proximal branches): Normal. Maximal flow velocity of 5.1 cm/s. ICA/CCA Ratio: 1.2 VERTEBRAL ARTERIES: Right Vertebral Artery: Patent. Antegrade flow. Left Vertebral Artery: Patent. Antegrade flow. OTHER FINDINGS: None. IMPRESSION: 1. No evidence of hemodynamically significant stenosis in the internal carotid arteries by peak systolic velocity criteria. 2. Patent bilateral vertebral arteries with antegrade flow. 3. Decreased peak systolic velocities in the common carotid, internal carotid, external carotid and vertebral arteries on the left. CT angiogram is recommended to assess proximal stenosis.
[2017-11-26 13:03] VITALS: BP 131/78; PULSE 48; TEMP 97.9
--- NOTE | 2017-11-26 13:22 | CARD ---
APPROVED REPORT Date of service: 11/26/2017 EKG Measurement Heart [id number] <Conclusion> Sinus bradycardia Otherwise normal ECG
[2017-11-26 14:33] VITALS: O2SAT 98
== END 2017-11-26 13:44 | disposition home or self-care (01) ==
LOC: H.ER 08:46 → H.ERHOLD 11:55 → H.TEL 17:28 → UNDODISOB 11-25 11:22
PROVIDERS: ADMIT Family Medicine; ATTEND Family Medicine
DX: I63.541 Cerebral infarction due to unspecified occlusion or stenosis of right cerebellar artery (principal); E78.00 Pure hypercholesterolemia, unspecified; E78.5 Hyperlipidemia, unspecified; I10 Essential (primary) hypertension; Z91.012 Allergy to eggs; R29.700 NIHSS score 0; R55 Syncope and collapse
CPT/HCPCS: 36415; 70450; 70551; 71045; 80053; 80061; 82948; 84436; 84443; 84480; 84484; 85025; 93005; 93306; 93880; 97161; 99285; G0378; G8978; G8979; G8980

== ENCOUNTER 2017-12-05 10:57 | Observation (INO) | payer BC ==
[2017-12-05 10:57] VITALS: BMI 25.1
--- NOTE | 2017-12-05 11:07 | ED PDOC ---
HPI:STROKE - Time Time: 11:05 - Historian Historian: Patient - Chief Complaint Chief Complaint: other (Blurry vision assoc with headache) - Onset Date: 12/05/17 Time: 09:00 - Timing Timing: Improved - Severity of pain Maximum severity:: Mild Pain Scale:: 1 Severity Current: None Pain Scale:: 1 - Associated Symptoms Associated symptoms:: Headache (Blurry vision and headcahe since 9 AM today. Blurry vision has resolved), Visual - TPA Positive for Contraindication: Yes Reason tPA is not being Administered: SXS improving NIHSS Stroke Scale - How Severe is the Stroke Level of Consciousness: 0=Alert LOC to Questions: 0=Both comments correct LOC to commands: 0=Obeys both correctly Best Gaze: 0=Normal Visual: 0=No visual loss Facial: 0=Normal Motor Arm - Left: 0=No drift Motor Arm - Right: 0=No drift Motor Leg - Left: 0=No drift Motor Leg - Right: 0=No drift Limb Ataxia: 0=Absent Sensory: 0=Normal Best Language: 0=No aphasia Dysarthia: 0=Normal articulation Extinction & Inattention (Neglect): 0=Normal, no object Score: 0 rTPA Inclusion/Exclusion - Refusal of Treatment Patient Refused Treatment: No - Inclusion Criteria for Altepase Patient is 18 years or Older: Yes The Clinical Diagnosis of Ischemic Stroke That is Causing a Potentially Disabling Neurological Deficit: Yes Time of Onset is Well Established to be Less Than 270 Minute Before Treatment Would Begin: Yes Risk/Benefit Discussed With Patient/Family Member Present: No Past Medical History Vital Signs: Last Vital Signs Temp Pulse 49 L 12/05/17 10:58 Resp 16 12/05/17 10:58 BP 113/77 12/05/17 10:58 Pulse Ox 99 12/05/17 10:58 - Medical History PMH: HTN, Hypercholesterolemia Denies: HIV, Chronic Kidney Disease - Surgical History Surgical History: Appendectomy - Family History Family History: States: Hypertension - Home Medications Home Medications: Ambulatory Orders Medication Instructions Recorded Aspirin [Aspirin Chewable] 81 mg PO DAILY #30 chew 11/26/17 Atorvastatin [Lipitor] 40 mg PO DAILY #30 tab 11/26/17 Clopidogrel [Plavix] 75 mg PO DAILY #30 tab 11/26/17 Losartan [Cozaar] 50 mg PO HS #30 tab 07/25/18 - Allergies Allergies/Adverse Reactions: Allergies Allergy/AdvReac Type Severity Reaction Status Date / Time egg Allergy RASH Verified 11/24/17 10:33 cortisone AdvReac RASH Verified 05/16/16 00:13 Review of Systems ROS Statement: Except As Marked, All Systems Reviewed And Found Negative Eyes: Positive for: Vision Change (Blurry vision) Neurological: Positive for: Headache Physical Exam - Reviewed Nursing Documentation Reviewed: Yes Vital Signs Reviewed: Yes - Physical Exam Appears: Positive for: Non-toxic, No Acute Distress Head Exam: Positive for: ATRAUMATIC, NORMAL INSPECTION, NORMOCEPHALIC Skin: Positive for: Normal Color, Warm, DRY Eye Exam: Positive for: EOMI, PERRL, Other (Lateral nystagmus bilat) ENT: Positive for: Normal ENT Inspection Neck: Positive for: Normal, Painless ROM Cardiovascular/Chest: Positive for: Regular Rate, Rhythm Respiratory: Positive for: CNT, Normal Breath Sounds Gastrointestinal/Abdominal: Positive for: Normal Exam, Soft Back: Positive for: Normal Inspection Extremity: Positive for: Normal ROM Neurologic/Psych: Positive for: Alert, Oriented. Negative for: Motor/Sensory Deficits - ECG O2 Sat by Pulse Oximetry: 99 Medical Decision Making Medical Decision Making: Discussed with Dr. Garcia, given NIHSS of 0 unlikely will be candidate for tPA. Will order MRI. Disposition - Clinical Impression Clinical Impression: Headache, Nystagmus - Patient ED Disposition Is Patient to be Admitted: Yes - Disposition Disposition Time: 11:25 Condition: FAIR Forms: [facility] ([place]) - Pt Status Changed To: Hospital Disposition Of: Observation - POA Present On Arrival: None
--- NOTE | 2017-12-05 11:20 | CT ---
Date of service: 12/05/2017 PROCEDURE: CT HEAD WITHOUT CONTRAST. HISTORY: code stroke COMPARISON: Noncontrast head CT 11/24/2017 TECHNIQUE: Axial computed tomography images were obtained through the head/brain without intravenous contrast. Radiation dose: Total exam DLP = 885.40 mGy-cm. This CT exam was performed using one or more of the following dose reduction techniques: Automated exposure control, adjustment of the mA and/or kV according to patient size, and/or use of iterative reconstruction technique. FINDINGS: HEMORRHAGE: No intracranial hemorrhage. BRAIN: Stable diffuse cerebral atrophy chronic microangiopathy are reiterated with a chronic lacune reiterated at the right basal ganglia medially. Posterior fossa contents are stable. No cortical edema throughout. No suspicious extra-axial fluid collection or definite mass effect. VENTRICLES: Unremarkable. No hydrocephalus. CALVARIUM: Unremarkable. PARANASAL SINUSES: Unremarkable as visualized. No significant inflammatory changes. MASTOID AIR CELLS: Unremarkable as visualized. No inflammatory changes. OTHER FINDINGS: None. IMPRESSION: Stable age related neuro degenerative changes are reiterated as well as a chronic lacune right basal ganglia. No suspicious interval findings by standard CT criteria. Follow-up CT or MRI is available as clinically warranted. Findings discussed with Dr. Bill with written down and read back verification 12/05/2017 11:19 a.m..
[2017-12-05 11:24] LABS: BASO # 0.1 K/uL (0.0-0.2); BASO % 1.2 % (0.0-2.0); EOS # 0.3 K/uL (0.0-0.7); EOS % 5.4 % (0.0-4.0); HEMOGLOBIN 14.3 g/dL (12.0-18.0); LYMPH # 1.7 K/uL (1.0-4.3); LYMPH % 29.2 % (20.0-40.0); MEAN CORPUSCULAR HEMOGLOBIN 29.9 pg (27.0-31.0); MEAN CORPUSCULAR HGB CONC 33.6 g/dL (33.0-37.0); MEAN PLATELET VOLUME 11.4 fl (7.2-11.7); MONO # 0.6 K/uL (0.0-0.8); MONO % 10.2 % (0.0-10.0); NEUT # 3.1 K/uL (1.8-7.0); NRBC % 0.1 % (0.0-0.0); RBC 4.79 Mil/uL (4.40-5.90); RED CELL DISTRIBUTION WIDTH 14.6 % (11.5-14.5); WHITE BLOOD COUNT 5.7 K/uL (4.8-10.8)
[2017-12-05 11:28] LABS: INR 1.1
[2017-12-05 11:31] LABS: PARTIAL THROMBOPLASTIN TIME 29.5 Seconds (25.6-37.1)
[2017-12-05 11:44] LABS: ALB/GLOB RATIO 1.4 (1.0-2.1); ALBUMIN 4.1 g/dL (3.5-5.0); ALT/SGPT 26 U/L (21-72); AST/SGOT 27 U/L (17-59); BLOOD UREA NITROGEN 17 mg/dl (9-20); CALCIUM 9.5 mg/dL (8.4-10.2); GFR AFRICAN-AMERICAN > 60; GFR NON-AFRICAN AMERICAN > 60; HDL CHOLESTEROL 39 MG/DL (30-70)
[2017-12-05 11:54] LABS: LDL CHOLESTEROL 64 mg/dL (0-129)
--- NOTE | 2017-12-05 12:52 | RAD ---
Date of service: 12/05/2017 HISTORY: Code Stroke COMPARISON: 11/24/2017 FINDINGS: LUNGS: No active pulmonary disease. PLEURA: No significant pleural effusion identified, no pneumothorax apparent. CARDIOVASCULAR: No radiographic findings to suggest acute or significant cardiovascular disease. OSSEOUS STRUCTURES: No significant abnormalities. VISUALIZED UPPER ABDOMEN: Normal. OTHER FINDINGS: None. IMPRESSION: No active disease. No significant interval change compared to the prior examination(s).
[2017-12-05] MEDS: Sodium Chloride 0.9% 1,000 ML IV SCH ×2 (13:27→22:56)
--- NOTE | 2017-12-05 14:13 | MRI ---
Date of service: 12/05/2017 PROCEDURE: MRI BRAIN WITHOUT CONTRAST HISTORY: Nystagmus COMPARISON: Noncontrast head CT 12/05/2017. TECHNIQUE: Multiplanar, multisequence MR images of the brain were obtained without intravenous contrast enhancement. FINDINGS: DWI: No evidence of an acute or early subacute infarction. BRAIN PARENCHYMA: Diffuse cerebral atrophy, chronic microangiopathy and small right basal ganglia chronic infarct are reiterated. While chronic microangiopathy is present at subcortical and centrum semiovale as well as periventricular white matter spaces, signal abnormalities in the periventricular/centrum semiovale white matter particular appear relatively prominent for the patient's stated age. Further, trace hemosiderin is seen deposited at the left internal capsule and thalamus as well as at the right temporal lobe and this pattern may reflect amyloid angiopathy. There is no mass effect or cortical edema appreciated throughout. Posterior fossa contents are remarkable only for a pontine microangiopathy with the cerebellum unremarkable. VENTRICLES: Unremarkable. No hydrocephalus. CRANIUM: Unremarkable. ORBITS: Grossly unremarkable. PARANASAL SINUSES/MASTOIDS: Clear VASCULAR SYSTEM: Skull base flow voids intact. OTHER FINDINGS: None. IMPRESSION: 1. No acute or subacute brain infarction identified at this time. 2. Diffuse cerebral atrophy chronic microangiopathy are identified, however, amyloid angiopathy may overlie microangiopathy pattern. Please see discussion above. 3. No mass effect or obvious acute subacute intracranial hemorrhage evident.
--- NOTE | 2017-12-05 17:03 | CARD ---
APPROVED REPORT Date of service: 12/05/2017 <Conclusion> Sinus bradycardia Otherwise normal ECG
--- NOTE | 2017-12-05 17:35 | CP.PCM.CON ---
History of Present Illness - History of Present Illness History of Present Illness: Neurology Consultation Note: Mr. Judd is a 67-year-old man with a past medical history of hypertension, dyslipidemia, who complained of headache, dizziness, and blurry vision this morning to his psychological operations specialist and was sent to the ED for evaluation. He states that he felt as though the room was spinning, it caused a headache/nausea and he also hear a "swishing" sound in his left ear. On exam, he had bilateral nystagmus that was more notable on left lateral gaze with the fast phase to the right. He felt that he was becoming more vertiginous with left gaze. CT scan of the head did not show any acute findings. MRI of the brain demonstrated white matter disease, previous right lateral basal ganglia infarct, cerebellar T2 hyper-intensities as well as other chronic ischemic changes. Review of Systems - Review of Systems All systems: reviewed and no additional remarkable complaints except Past Patient History - Past Medical History & Family History Past Medical History?: Yes - Past Social History Smoking Status: Never Smoked - CARDIAC Hx Cardiac Disorders: Yes - PULMONARY Hx Respiratory Disorders: No - NEUROLOGICAL Hx Neurological Disorder: Yes - HEENT Hx HEENT Problems: No - RENAL Hx Chronic Kidney Disease: No - ENDOCRINE/METABOLIC Hx Endocrine Disorders: No - HEMATOLOGICAL/ONCOLOGICAL Hx Human Immunodeficiency Virus (HIV): No - INTEGUMENTARY Hx Dermatological Problems: No - MUSCULOSKELETAL/RHEUMATOLOGICAL Hx Musculoskeletal Disorders: No Hx Falls: No Other/Comment: broken ribs 2000 - GASTROINTESTINAL Hx Gastrointestinal Disorders: No - GENITOURINARY/GYNECOLOGICAL Hx Genitourinary Disorders: No - PSYCHIATRIC Hx Psychophysiologic Disorder: No Hx Substance Use: No - SURGICAL HISTORY Hx Appendectomy: Yes - ANESTHESIA Hx Anesthesia: Yes Hx Anesthesia Reactions: No Hx Malignant Hyperthermia: No Meds Allergies/Adverse Reactions: Allergies Allergy/AdvReac Type Severity Reaction Status Date / Time egg Allergy RASH Verified 11/24/17 10:33 cortisone AdvReac RASH Verified 05/16/16 00:13 - Medications Medications: Current Medications Sodium Chloride (Sodium Chloride 0.9%) 1,000 mls @ 100 mls/hr IV .Q10H [facility] Last Admin: 12/05/17 13:27 Dose: 100 mls/hr Physical Exam - Neurological Exam Neurological exam: Alert, CN II-XII Intact, Normal Gait, Oriented x3, Reflexes Normal Additional comments: Nystagmus bilaterally, but more prominent on left lateral gaze with fast phase to the right. Results - Vital Signs Recent Vital Signs: Last Vital Signs Temp 98.4 F 12/05/17 12:30 Pulse 51 L 12/05/17 17:20 Resp 18 12/05/17 17:20 BP 158/84 H 12/05/17 17:20 Pulse Ox 100 12/05/17 16:47 - Labs Result Diagrams: 12/05/17 11:15 12/05/17 11:15 Labs: Laboratory Results - last 24 hr 12/05/17 12/05/17 12/05/17 11:15 11:15 11:15 WBC 5.7 RBC 4.79 Hgb 14.3 Hct 42.6 MCV 89.0 MCH 29.9 MCHC 33.6 RDW 14.6 H Plt Count 169 MPV 11.4 Neut % (Auto) 54.0 Lymph % (Auto) 29.2 [place] % (Auto) 10.2 H Eos % (Auto) 5.4 H Baso % (Auto) 1.2 Neut # (Auto) 3.1 Lymph # (Auto) 1.7 [place] # (Auto) 0.6 Eos # (Auto) 0.3 Baso # (Auto) 0.1 PT 12.0 INR 1.1 APTT 29.5 Sodium 139 Potassium 4.3 Chloride 103 Carbon Dioxide 27 Anion Gap 13 BUN 17 Creatinine 1.0 Est GFR ( Amer) > 60 Est GFR (Non-Af Amer) > 60 Random Glucose 92 Hemoglobin A1c Calcium 9.5 Total Bilirubin 0.9 AST 27 ALT 26 Alkaline Phosphatase 38 Troponin I < 0.0120 Total Protein 7.0 Albumin 4.1 Globulin 3.0 Albumin/Globulin Ratio 1.4 Triglycerides 131 D Cholesterol 133 LDL Cholesterol Direct 64 HDL Cholesterol 39 Blood Type Antibody Screen BBK History Checked 12/05/17 12/05/17 11:15 12:40 WBC RBC Hgb Hct MCV MCH MCHC RDW Plt Count MPV Neut % (Auto) Lymph % (Auto) [place] % (Auto) Eos % (Auto) Baso % (Auto) Neut # (Auto) Lymph # (Auto) [place] # (Auto) Eos # (Auto) Baso # (Auto) PT INR APTT Sodium Potassium Chloride Carbon Dioxide Anion Gap BUN Creatinine Est GFR ( Amer) Est GFR (Non-Af Amer) Random Glucose Hemoglobin A1c 6.1 Calcium Total Bilirubin AST ALT Alkaline Phosphatase Troponin I Total Protein Albumin Globulin Albumin/Globulin Ratio Triglycerides Cholesterol LDL Cholesterol Direct HDL Cholesterol Blood Type A NEGATIVE Antibody Screen Negative BBK History Checked Patient has bt Assessment & Plan (1) Headache Assessment and Plan: This has improved with Tylenol. Status: Acute (2) Nystagmus Assessment and Plan: This is concerning along with the swishing sound. An MRA/MRV is recommended to rule out possible fisulous connections or an AV malformation. Status: Acute (3) CVA (cerebral vascular accident) Assessment and Plan: The patient continues to be high risk for stroke and has had previous ischemic stroke based on MRI. I recommend continuing secondary stroke prevention with aspirin, statin and risk factor modification per primary team. Status: Acute (4) Dizziness Assessment and Plan: This seems to be positional and associated with his eye movements and nystagmus. We can start valium 2 mg Q12 PRN vertigo/dizziness. Status: Acute
[2017-12-06 04:56] VITALS: RESP 18
[2017-12-06] MEDS: Sodium Chloride 0.9% 1,000 ML IV SCH (08:04)
[2017-12-06 08:20] VITALS: BP 160/96; PULSE 49; TEMP 97.3; O2SAT 99
--- NOTE | 2017-12-06 09:10 | CP.PCM.CON ---
History of Present Illness - History of Present Illness History of Present Illness: I was asked to see patient by Dr Yeung. Patient is a 67 year old male with PMH HTN, CVA who presents with headache. He was hypertensive. There was concern for recurrent CVA. He is admitted with no acute change on MRI. Review of Systems - Constitutional Constitutional: absent: As Per HPI, Anorexia, Chills, Daytime Sleepiness, Excessive Sweating, Fatigue, Fever, Frequent Falls, Headache, Increased Appetite , Lethargy, Malaise, Night Sweats, Snoring, Sleep Apnea, Weight Gain, Weight Loss, Weakness, Other - EENT Eyes: absent: As Per HPI, Blind Spots, Blurred Vision, Change in Vision, Decreased Night Vision, Diplopia, Discharge, Dry Eye, Exophthalmos, Floaters, Irritation, Itchy Eyes, Loss of Peripheral Vision, Pain, Photophobia, Requires Corrective Lenses, Sees Flashes, Spots in Vision, Tunnel Vision, Other Visual Disturbances, Loss of Vision, Other Ears: absent: As Per HPI, Decreased Hearing, Ear Discharge, Ear Pain, Tinnitus, Abnormal Hearing, Disequilibrium, Dizziness, Other Nose/Mouth/Throat: absent: As Per HPI, Epistaxis, Nasal Congestion, Nasal Discharge, Nasal Obstruction, Nasal Trauma, Nose Pain, Post Nasal Drip, Sinus Pain, Sinus Pressure, Bleeding Gums, Change in Voice, Dental Pain, Dry Mouth, Dysphagia, Halitosis, Hoarsness, Lip Swelling, Mouth Lesions, Mouth Pain, Odynophagia, Sore Throat, Throat Swelling, Tongue Swelling, Facial Pain, Neck Pain, Neck Mass, Other - Cardiovascular Cardiovascular: absent: As Per HPI, Acrocyanosis, Chest Pain, Chest Pain at Rest , Chest Pain with Activity, Claudication, Diaphoresis, Dyspnea, Dyspnea on Exertion, Edema, Irregular Heart Rhythm, Pain Radiating to Arm/Neck/Jaw, Leg Edema, Leg Ulcers, Lightheadedness, Orthopnea, Palpitations, Paroxysmal Nocturnal Dyspnea, Pedal Edema, Radiating Pain, Rapid Heart Rate, Slow Heart Rate, Syncope, Other - Respiratory Respiratory: absent: As Per HPI, Cough, Dyspnea, Hemoptysis, Dyspnea on Exertion , Wheezing, Snoring, Stridor, Pain on Inspiration, Chest Congestion, Excessive Mucous Production, Change in Mucous Color, Pain with Coughing, Other - Gastrointestinal Gastrointestinal: absent: As Per HPI, Abdominal Pain, Belching, Bloating, Change in Bowel Habits, Change in Stool Character, Coffee Ground Emesis, Constipation, Cramping, Diarrhea, Dyspepsia, Dysphagia, Early Satiety, Excessive Flatus, Fecal Incontinence, Heartburn, Hematemesis, Hematochezia, Loose Stools, Melena, Nausea, Odynophagia, Temesmus, Vomiting, Other - Genitourinary Genitourinary: absent: As Per HPI, Change in Urinary Stream, Difficulty Urinating, Dysuria, Flank Pain, Hematuria, Pyuria, Nocturia, Urinary Incontinence, Urinary Frequency, Urinary Hesitance, Urinary Urgency, Voiding Freq/Small Amts, Freq UTI, Hx Renal/Bladder Calculi, Hx /Renal Surgery, Bladder Distension, Other - Musculoskeletal Musculoskeletal: absent: As Per HPI, Abnormal Gait, Arthralgias, Atrophy, Back Pain, Deformity, Joint Swelling, Limited Range of Motion, Loss of Height, Muscle Cramps, Muscle Weakness, Myalgias, Neck Pain, Numbness, Radiating Pain into Limb, Stiffness, Tingling, Other - Integumentary Integumentary: absent: As Per HPI, Acne, Alopecia, Bleeding Lesions, Change in Hair, Change in Nails, Change in Pigmentation, Changing Lesions, Dry Skin, Erythema, Furuncle, Hirsutism, Lesions, New Lesions, Non-Healing Lesions, Photosensitivity, Pruritus, Rash, Skin Pain, Skin Ulcer, Sores, Striae, Swelling , Unusual Bruising, Wounds, Jaundice, Other - Neurological Neurological: absent: As Per HPI, Abnormal Gait, Abnormal Hearing, Abnormal Movements, Abnormal Speech, Behavioral Changes, Burning Sensations, Confusion, Convulsions, Disequilibrium, Dizziness, Numbness, Focal Weakness, Frequent Falls , Headaches, Lack of Coordination, Loss of Vision, Memory Loss, Paresthesias, Radicular Pain, Restless Legs, Sensory Deficit, Syncope, Tingling, Tremor, Vertigo, Weakness, Other Visual Disturbances, Other - Psychiatric Psychiatric: absent: As Per HPI, Abnormal Sleep Pattern, Anhedonia, Anxiety, Auditory Hallucinations, Behavioral Changes, Change in Appetite, Change in Libido, Confusion, Depression, Difficulty Concentrating, Hallucinations, Homicidal Ideation, Hopelessness, Irritability, Memory Loss, Mood Swings, Panic Attacks, Paranoia, Suicidal Ideation, Visual Hallucinations, Tactile Hallucinations, Other - Endocrine Endocrine: absent: As Per HPI, Change in Body Appearance, Change in Libido, Cold Intolorance, Deepening of Voice, Excessive Sweating, Fatigue, Flushing, Heat Intolorance, Increase in Ring/Shoe/Hat Size, Palpitations, Polydipsia, Polyphagia, Polyuria, Other - Hematologic/Lymphatic Hematologic: absent: As Per HPI, Easy Bleeding, Easy Bruising, Lymphadenopathy, Other Past Patient History - Past Medical History & Family History Past Medical History?: Yes - Past Social History Smoking Status: Never Smoked - CARDIAC Hx Cardiac Disorders: Yes Hx Hypercholesterolemia: Yes Hx Hypertension: Yes - PULMONARY Hx Respiratory Disorders: No - NEUROLOGICAL Hx Neurological Disorder: Yes Hx Transient Ischemic Attacks (TIA): Yes (admitted and tx last week per pt) - HEENT Hx HEENT Problems: No - RENAL Hx Chronic Kidney Disease: No - ENDOCRINE/METABOLIC Hx Endocrine Disorders: No - HEMATOLOGICAL/ONCOLOGICAL Hx AIDS: No Hx Human Immunodeficiency Virus (HIV): No - INTEGUMENTARY Hx Dermatological Problems: No - MUSCULOSKELETAL/RHEUMATOLOGICAL Hx Musculoskeletal Disorders: Yes Hx Falls: Yes (2001) Hx Fractures: Yes (ribs in 2001 after fall) - GASTROINTESTINAL Hx Gastrointestinal Disorders: No - GENITOURINARY/GYNECOLOGICAL Hx Genitourinary Disorders: No - PSYCHIATRIC Hx Psychophysiologic Disorder: No Hx Anxiety: No Hx Substance Use: No - SURGICAL HISTORY Hx Surgeries: Yes Hx Appendectomy: Yes - ANESTHESIA Hx Anesthesia: Yes Hx Anesthesia Reactions: No Hx Malignant Hyperthermia: No Meds Allergies/Adverse Reactions: Allergies Allergy/AdvReac Type Severity Reaction Status Date / Time egg Allergy RASH Verified 11/24/17 10:33 cortisone AdvReac RASH Verified 05/16/16 00:13 - Medications Medications: Current Medications Aspirin (Aspirin Chewable) 81 mg PO DAILY [facility] Last Admin: 12/06/17 08:00 Dose: 81 mg Atorvastatin Calcium (Lipitor) 40 mg PO DAILY [facility] Last Admin: 12/06/17 08:01 Dose: 40 mg Clopidogrel Bisulfate (Plavix) 75 mg PO DAILY [facility] Last Admin: 12/06/17 08:02 Dose: 75 mg Cyclobenzaprine HCl (Flexeril) 5 mg PO HS [facility] Last Admin: 12/06/17 08:02 Dose: Not Given Sodium Chloride (Sodium Chloride 0.9%) 1,000 mls @ 100 mls/hr IV .Q10H [facility] Last Admin: 12/06/17 08:04 Dose: Not Given Losartan Potassium (Cozaar) 50 mg PO HS [facility] Last Admin: 12/05/17 23:24 Dose: 50 mg Vitamin E (Vitamin E 400 Units Cap) 400 intlu PO DAILY [facility] Last Admin: 12/06/17 08:02 Dose: 400 intlu Physical Exam - Constitutional Appears: Non-toxic - Head Exam Head Exam: NORMAL INSPECTION - Eye Exam Eye Exam: Normal appearance - ENT Exam ENT Exam: Mucous Membranes Moist - Neck Exam Neck exam: Positive for: Normal Inspection - Respiratory Exam Respiratory Exam: NORMAL BREATHING PATTERN - Cardiovascular Exam Cardiovascular Exam: REGULAR RHYTHM - GI/Abdominal Exam GI & Abdominal Exam: Normal Bowel Sounds - Rectal Exam Rectal Exam: Deferred - Extremities Exam Extremities exam: Negative for: pedal edema - Back Exam Back exam: NORMAL INSPECTION - Neurological Exam Neurological exam: Alert, Oriented x3 - Psychiatric Exam Psychiatric exam: Normal Affect - Skin Skin Exam: Normal Color Results - Vital Signs Recent Vital Signs: Last Vital Signs Temp 97.3 F L 12/06/17 08:19 Pulse 49 L 12/06/17 08:19 Resp 18 12/06/17 08:19 BP 160/96 H 12/06/17 08:19 Pulse Ox 99 12/06/17 08:19 - Labs Result Diagrams: 12/05/17 11:15 12/05/17 11:15 Labs: Laboratory Results - last 24 hr 12/05/17 12/05/17 12/05/17 11:00 11:15 11:15 WBC 5.7 RBC 4.79 Hgb 14.3 Hct 42.6 MCV 89.0 MCH 29.9 MCHC 33.6 RDW 14.6 H Plt Count 169 MPV 11.4 Neut % (Auto) 54.0 Lymph % (Auto) 29.2 [place] % (Auto) 10.2 H Eos % (Auto) 5.4 H Baso % (Auto) 1.2 Neut # (Auto) 3.1 Lymph # (Auto) 1.7 [place] # (Auto) 0.6 Eos # (Auto) 0.3 Baso # (Auto) 0.1 PT INR APTT Sodium 139 Potassium 4.3 Chloride 103 Carbon Dioxide 27 Anion Gap 13 BUN 17 Creatinine 1.0 Est GFR ( Amer) > 60 Est GFR (Non-Af Amer) > 60 POC Glucose (mg/dL) 91 Random Glucose 92 Hemoglobin A1c Calcium 9.5 Total Bilirubin 0.9 AST 27 ALT 26 Alkaline Phosphatase 38 Troponin I < 0.0120 Total Protein 7.0 Albumin 4.1 Globulin 3.0 Albumin/Globulin Ratio 1.4 Triglycerides 131 D Cholesterol 133 LDL Cholesterol Direct 64 HDL Cholesterol 39 Blood Type Antibody Screen BBK History Checked 12/05/17 12/05/17 12/05/17 11:15 11:15 12:40 WBC RBC Hgb Hct MCV MCH MCHC RDW Plt Count MPV Neut % (Auto) Lymph % (Auto) [place] % (Auto) Eos % (Auto) Baso % (Auto) Neut # (Auto) Lymph # (Auto) [place] # (Auto) Eos # (Auto) Baso # (Auto) PT 12.0 INR 1.1 APTT 29.5 Sodium Potassium Chloride Carbon Dioxide Anion Gap BUN Creatinine Est GFR ( Amer) Est GFR (Non-Af Amer) POC Glucose (mg/dL) Random Glucose Hemoglobin A1c 6.1 Calcium Total Bilirubin AST ALT Alkaline Phosphatase Troponin I Total Protein Albumin Globulin Albumin/Globulin Ratio Triglycerides Cholesterol LDL Cholesterol Direct HDL Cholesterol Blood Type A NEGATIVE Antibody Screen Negative BBK History Checked Patient has bt - EKG Data EKG Interpreted by: Myself EKG shows normal: Sinus rhythm Assessment & Plan (1) Hypertension Assessment and Plan: medical therapy and blood pressure control Status: Chronic (2) CVA (cerebral vascular accident) Status: Acute
--- NOTE | 2017-12-06 09:21 | MRI ---
Date of service: 12/05/2017 PROCEDURE: Magnetic Resonance Angiography Brain HISTORY: CVA COMPARISON: None available. TECHNIQUE: 3D time of flight MR angiography of the intracranial arteries was performed. Rotating maximum intensity projection images were generated. FINDINGS: INTERNAL CAROTID ARTERIES: Unremarkable. The skull base, petrous, cavernous and supraclinoid segments are bilaterally widely patient. ANTERIOR CEREBRAL ARTERIES: Unremarkable. A1 and A2 segments are widely patent. Smaller distal branches unremarkable, as visualized. MIDDLE CEREBRAL ARTERIES: Unremarkable. M1 and M2 segments are widely patent. Perisylvian branches grossly symmetric. POSTERIOR CIRCULATION: Basilar Artery: Unremarkable. Distal Vertebral Arteries: Unremarkable. Posterior Cerebral Arteries: Unremarkable. Posterior Inferior Cerebellar Arteries: Unremarkable. ANEURYSM/ VASCULAR MALFORMATIONS: None. OTHER FINDINGS: None. IMPRESSION: Unremarkable MR angiography of the brain.
--- NOTE | 2017-12-06 09:27 | MRI ---
Date of service: 12/05/2017 PROCEDURE: MR Venography of the Brain HISTORY: CVA COMPARISON: None available. TECHNIQUE: 2D time of flight venography of the brain was performed. Rotating MIP images of the intracranial veins were generated. FINDINGS: SUPERFICIAL VEINS: Superior Sagittal Sinus: Patent. Inferior Sagittal Sinus:Patent. Transverse Sinuses: Patent. Sigmoid Sinuses:Patent. DEEP VEINS: Internal Cerebral Veins: Patent. Vein of [place]: Patent. Straight Sinus: Patent. IMPRESSION: Normal MR Venography of the Brain. No evidence of venous thrombosis.
--- NOTE | 2017-12-06 16:45 | CARD ---
APPROVED REPORT Date of service: 12/06/2017 EXAM: Two-dimensional and M-mode echocardiogram with Doppler and color Doppler. Other Information Quality : AverageRhythm : INDICATION 2D DIMENSIONS IVSd1.27 (0.7-1.1cm)LVDd4.81 (3.9-5.9cm) PWd1.10 (0.7-1.1cm)LVDs3.14 (2.5-4.0cm) FS (%) 34.6 % M-Mode DIMENSIONS Left Atrium (MM)3.78 (2.5-4.0cm)IVSd1.25 (0.7-1.1cm) Aortic Root2.46 (2.2-3.7cm)LVDd4.84 (4.0-5.6cm) Aortic Cusp Exc.1.81 (1.5-2.0cm)PWd0.79 (0.7-1.1cm) FS (%) 33 %LVDs3.25 (2.0-3.8cm) Mitral Valve MV E Ofohmlvj49.0cm/sMV DECEL [id number] A Xthvljsw09.7cm/s MV BXU06wfH/A ratio1.1MVA (PHT)4.26cm2 TDI Lateral E' Peak V13.20cm/sE/Lateral E'6.5E/Medial E'0.0 Tricuspid Valve TR Peak Zgbypmmt180tv/sRAP [id number] Peak Gr.20mmHg [id number] LEFT VENTRICLE The left ventricle is normal size. There is borderline concentric left ventricular hypertrophy. The left ventricular function is normal. The left ventricular ejection fraction is within the normal range, with EF 55%. No regional wall motion abnormalities noted. Transmitral Doppler flow pattern is Grade I-abnormal relaxation pattern. No left ventricle thrombus noted on this study. There is no ventricular septal defect visualized. There is no left ventricular aneurysm. There is no mass noted in the left ventricle. RIGHT VENTRICLE The right ventricle is normal size. There is normal right ventricular wall thickness. The right ventricular systolic function is normal. ATRIA The left atrium size is normal. The right atrium size is normal. The interatrial septum is intact with no evidence for an atrial septal defect. AORTIC VALVE The aortic valve is normal in structure. No aortic regurgitation is present. There is no aortic valvular stenosis. There is no aortic valvular vegetation. MITRAL VALVE The mitral valve is normal in structure. There is no evidence of mitral valve prolapse. There is no mitral valve stenosis. There is no mitral valve regurgitation noted. TRICUSPID VALVE The tricuspid valve is normal in structure. There is mild tricuspid valve regurgitation noted. There is no tricuspid valve prolapse or vegetation. There is no tricuspid valve stenosis. PULMONIC VALVE The pulmonary valve is normal in structure. There is no pulmonic valvular regurgitation. There is no pulmonic valvular stenosis. GREAT VESSELS The aortic root is normal in size. The ascending aorta is normal in size. The pulmonary artery is normal. The IVC is normal in size and collapses >50% with inspiration. PERICARDIAL EFFUSION The pericardium appears normal. There is no pleural effusion. <Conclusion> There is borderline concentric left ventricular hypertrophy. The left ventricular ejection fraction is within the normal range, with EF 55%. Transmitral Doppler flow pattern is Grade I-abnormal relaxation pattern. There is mild tricuspid valve regurgitation noted.
== END 2017-12-06 10:06 | disposition home or self-care (01) ==
LOC: H.ER 10:57 → H.ERHOLD 11:22 → H.TEL 18:14
PROVIDERS: ADMIT Family Medicine; ATTEND Family Medicine
DX: I10 Essential (primary) hypertension (principal); E78.00 Pure hypercholesterolemia, unspecified; Z91.012 Allergy to eggs; E78.5 Hyperlipidemia, unspecified; H55.00 Unspecified nystagmus; Z86.73 Personal history of transient ischemic attack (TIA), and cerebral infarction without residual deficits; R90.82 White matter disease, unspecified
CPT/HCPCS: 70450; 70544; 70551; 71045; 80053; 80061; 82948; 83036; 84484; 85025; 85610; 85730; 86850; 86900; 93005; 93306; 99285; G0378; J7030

== ENCOUNTER 2018-01-15 09:05 | Emergency (ER) | payer BC ==
[2018-01-15 09:11] VITALS: BMI 28.1
[2018-01-15] MEDS ORDERED: Enalaprilat 2.5 MG/2 ML IVP STA (09:14)
[2018-01-15] MEDS ORDERED: Sodium Chloride 0.9% 1,000 ML IV SCH (09:15)
--- NOTE | 2018-01-15 09:29 | CT ---
Date of service: 01/15/2018 PROCEDURE: CT HEAD WITHOUT CONTRAST. HISTORY: code stroke COMPARISON: 12/05/2017. TECHNIQUE: Axial computed tomography images were obtained through the head/brain without intravenous contrast. Radiation dose: Total exam DLP = 834.66 mGy-cm. This CT exam was performed using one or more of the following dose reduction techniques: Automated exposure control, adjustment of the mA and/or kV according to patient size, and/or use of iterative reconstruction technique. FINDINGS: HEMORRHAGE: No intracranial hemorrhage. BRAIN: There is an old infarction in the right basal ganglia. There are moderate chronic microangiopathic changes. There is no mass, mass effect or abnormal extra-axial fluid collection. There is no territorial infarction. The midline sagittal structures are normal. VENTRICLES: The ventricles are normal in size, shape and configuration. CALVARIUM: Unremarkable. PARANASAL SINUSES: There is a small retention cyst/ polyp in the left frontal sinus and mild mucosal thickening in the ethmoid air cells and sphenoid chamber. MASTOID AIR CELLS: Predominantly clear. OTHER FINDINGS: None. IMPRESSION: No acute intracranial abnormality. If there is a persistent focal neurologic deficit and an ongoing clinical concern for acute infarction, an MRI of the brain without intravenous contrast would be a more sensitive modality for evaluation of hyperacute/acute ischemic infarction. Old infarction in the right basal ganglia. Important findings were discussed with Dr. David Segovia in the ER on 01/15/2018 at 9:25 a.m.
[2018-01-15] MEDS ORDERED: EnalaprilAT 1.25 mg/ml Inj ONE (09:31)
[2018-01-15 09:41] LABS: PARTIAL THROMBOPLASTIN TIME 28.7 Seconds (25.6-37.1)
[2018-01-15 09:45] LABS: ALB/GLOB RATIO 1.4 (1.0-2.1); ALT/SGPT 21 U/L (21-72); AST/SGOT 23 U/L (17-59); BLOOD UREA NITROGEN 16 mg/dl (9-20); CALCIUM 9.5 mg/dL (8.4-10.2); GFR NON-AFRICAN AMERICAN > 60; HDL CHOLESTEROL 42 MG/DL (30-70)
[2018-01-15 09:56] LABS: LDL CHOLESTEROL 97 mg/dL (0-129)
--- NOTE | 2018-01-15 10:35 | RAD ---
Date of service: 01/15/2018 HISTORY: Code Stroke COMPARISON: 12/05/2017. FINDINGS: LUNGS: The lungs are well inflated and clear. PLEURA: There is chronic left pleural thickening, no pneumothorax apparent. CARDIOVASCULAR: Normal. OSSEOUS STRUCTURES: No significant abnormalities. VISUALIZED UPPER ABDOMEN: Normal. OTHER FINDINGS: None. IMPRESSION: No acute findings.
[2018-01-15 11:46] LABS: BASO % 1.6 % (0.0-2.0); EOS % 3.6 % (0.0-4.0); HEMOGLOBIN 14.2 g/dL (12.0-18.0); LYMPH % 31.6 % (20.0-40.0); MEAN CELL VOLUME 88.3 fl (80.0-94.0); MEAN CORPUSCULAR HEMOGLOBIN 29.4 pg (27.0-31.0); MEAN CORPUSCULAR HGB CONC 33.4 g/dL (33.0-37.0); MEAN PLATELET VOLUME 12.4 fl (7.2-11.7); MONO % 10.6 % (0.0-10.0); NEUT % 52.3 % (50.0-75.0); RBC 4.85 Mil/uL (4.40-5.90); RED CELL DISTRIBUTION WIDTH 14.8 % (11.5-14.5); WHITE BLOOD COUNT 6.2 K/uL (4.8-10.8)
[2018-01-15 11:47] LABS: BASO # 0.1 K/uL (0.0-0.2); EOS # 0.2 K/uL (0.0-0.7); LYMPH # 2.9 K/uL (1.0-4.3); MONO # 10.6 K/uL (0.0-0.8); NEUT # 3.3 K/uL (1.8-7.0)
--- NOTE | 2018-01-15 13:24 | ED PDOC ---
HPI: General Adult Time Seen by Provider: 01/15/18 09:09 Chief Complaint (Nursing): Headache Chief Complaint (Provider): headache dizzy History Per: Patient History/Exam Limitations: no limitations Current Symptoms Are (Timing): Still Present Severity: Mild NIHSS Stroke Scale - Date/Time Evaluation Performed Date Performed: 01/15/18 Time Performed: 09:15 When Was NIHSS Performed: Baseline - How Severe is the Stroke Level of Consciousness: 0=Alert LOC to Questions: 0=Both comments correct LOC to commands: 0=Obeys both correctly Best Gaze: 0=Normal Visual: 0=No visual loss Facial: 0=Normal Motor Arm - Left: 0=No drift Motor Arm - Right: 0=No drift Motor Leg - Left: 0=No drift Motor Leg - Right: 0=No drift Limb Ataxia: 1=Present Upper or Lower Sensory: 0=Normal Best Language: 0=No aphasia Dysarthia: 0=Normal articulation Extinction & Inattention (Neglect): 0=Normal, no object Score: 1 Past Medical History Reviewed: Historical Data, Nursing Documentation, Vital Signs Vital Signs: Last Vital Signs Temp 97.8 F 01/15/18 14:05 Pulse 62 01/15/18 14:05 Resp 18 01/15/18 14:05 BP 147/84 01/15/18 14:05 Pulse Ox 98 01/15/18 14:05 - Medical History PMH: Fractures (ribs in 2001 after fall), HTN, Hypercholesterolemia, TIA ( admitted and tx last week per pt) Denies: Anxiety, HIV, Chronic Kidney Disease - Surgical History Surgical History: Appendectomy - Family History Family History: States: Hypertension - Home Medications Home Medications: Ambulatory Orders Medication Instructions Recorded Atorvastatin [Lipitor] 40 mg PO DAILY #30 tab 11/26/17 Clopidogrel [Plavix] 75 mg PO DAILY #30 tab 11/26/17 Losartan [Cozaar] 50 mg PO HS #30 tab 11/26/17 Aspirin [Aspirin Chewable] 81 mg PO DAILY 12/05/17 Cyclobenzaprine [Flexeril] 5 mg PO HS 12/05/17 Vitamin E [Vitamin E 400 Units Cap] 1 cap PO DAILY 12/05/17 - Allergies Allergies/Adverse Reactions: Allergies Allergy/AdvReac Type Severity Reaction Status Date / Time egg Allergy RASH Verified 01/15/18 09:14 cortisone AdvReac RASH Verified 01/15/18 09:14 Review of Systems ROS Statement: Except As Marked, All Systems Reviewed And Found Negative Constitutional: Negative for: Fever ENT: Negative for: Ear Discharge, Throat Pain Cardiovascular: Negative for: Chest Pain Respiratory: Negative for: Shortness of Breath Gastrointestinal: Negative for: Abdominal Pain Genitourinary Male: Negative for: Incontinence Musculoskeletal: Negative for: Neck Pain Neurological: Positive for: Headache, Dizziness. Negative for: Weakness, Numbness, Change in Speech, Confusion, Seizures Psych: Negative for: Depression Physical Exam - Reviewed Nursing Documentation Reviewed: Yes Vital Signs Reviewed: Yes - Physical Exam Appears: Positive for: Well, Non-toxic, No Acute Distress Head Exam: Positive for: ATRAUMATIC, NORMAL INSPECTION, NORMOCEPHALIC Skin: Positive for: Normal Color, Warm, DRY Eye Exam: Positive for: EOMI, Normal appearance, PERRL ENT: Positive for: Normal ENT Inspection Neck: Positive for: Normal, Painless ROM Cardiovascular/Chest: Positive for: Regular Rate, Rhythm Respiratory: Positive for: CNT, Normal Breath Sounds Gastrointestinal/Abdominal: Positive for: Normal Exam, Soft Back: Positive for: Normal Inspection Extremity: Positive for: Normal ROM Neurologic/Psych: Positive for: Alert, 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 Negative for: Motor/Sensory Deficits (strength 5/5 all ext), Aphasia - Laboratory Results Result Diagrams: 01/15/18 11:13 01/15/18 09:24 - ECG ECG: Positive for: Interpreted By Mo ECG Rhythm: Positive for: Sinus Bradycardia, Nonspecific Changes Rate: 50 O2 Sat by Pulse Oximetry: 95 Pulse Ox Interpretation: Normal Medical Decision Making Medical Decision Making: code stroke initiated based on symptoms and onset <24hrs CT brain d/w Dr Hardin radiologist, no acute changes d/w Dr Garnica neurology, had MRI MRV last month for full workup Labs reviewed and clinically unremarkable BP elevated, vasotect 2.5mg IV given w improvement and resolution of symptoms. 1pm re-eval BP improved 134/76 and patient is asymptomatic. Case d/w PMD Dr Yeung who knows patient well, had extensive cardiac and neuro workups within last 60days/ ok for discharge, will see him in office tomorrow for eval of BP meds. Disposition - Clinical Impression Clinical Impression: Acute headache, Dizziness, Hypertensive urgency - Patient ED Disposition Is Patient to be Admitted: No Counseled Patient/Family Regarding: Studies Performed, Diagnosis - Disposition Referrals: Claude Yeung MD [Staff Provider] - Disposition: Routine/Home Disposition Time: 13:24 Condition: STABLE Additional Instructions: SEE DR YEUNG TOMORROW, BRING YOUR BLOOD PRESSURE MEDICATIONS WITH YOU. TAKE ALL MEDICATIONS DIRECTED. Instructions: Medicines for High Blood Pressure, Acute Headache (ED) Forms: [employer] (Anguillan) Print Language: KINYARWANDA
[2018-01-15 13:41] VITALS: TEMP 97.8
[2018-01-15 14:06] VITALS: BP 147/84; RESP 18
[2018-01-15 17:13] VITALS: PULSE 50; O2SAT 95
--- NOTE | 2018-01-15 21:16 | CARD ---
APPROVED REPORT Date of service: 01/15/2018 <Conclusion> Sinus bradycardia Minimal voltage criteria for LVH, may be normal variant Borderline ECG
== END 2018-01-15 14:17 | disposition home or self-care (01) ==
LOC: H.ER 09:05
DX: R51 Headache (principal); R42 Dizziness and giddiness; I10 Essential (primary) hypertension; E78.00 Pure hypercholesterolemia, unspecified; Z86.73 Personal history of transient ischemic attack (TIA), and cerebral infarction without residual deficits; Z79.82 Long term (current) use of aspirin
CPT/HCPCS: 70450; 71045; 80053; 80061; 83036; 84484; 85025; 85610; 85730; 86850; 86900; 93005; 96361; 96374; 99285; J7030

== ENCOUNTER 2018-03-03 09:28 | Emergency (ER) | payer BC ==
[2018-03-03 09:28] VITALS: BMI 28.1
[2018-03-03 10:10] VITALS: TEMP 97.9
--- NOTE | 2018-03-03 10:12 | ED PDOC ---
HPI: Chest Pain Time Seen by Provider: 03/03/18 09:43 Chief Complaint (Nursing): Chest Pain Chief Complaint (Provider): palpitations History Per: Patient History/Exam Limitations: no limitations Onset/Duration Of Symptoms: Hrs (2), Intermittent Episodes Current Symptoms Are (Timing): Intermittent Episodes Severity: Mild Associated Symptoms: denies: Nausea, Dyspnea Modifying Factors: None Exacerbating Factors: Exertion Alleviating Factors: None Additional Complaint(s): 67yo male c/o palpitations, slight dizziness since this morning. States recently changed blood pressure medications, takes one pill nightly, compliant with it, but he felt palpitations this morning and checked BP and was 154/122. Denies chest pain, headache, weakness or change vision or speech. Prior records reviewed, seen last month had CT brain, recent MRI and cardiac workup via Dr Mandel. Past Medical History Reviewed: Historical Data, Nursing Documentation, Vital Signs Vital Signs: Last Vital Signs Temp 97.9 F 03/03/18 09:48 Pulse 78 03/03/18 09:48 Resp 19 03/03/18 09:48 BP 156/100 H 03/03/18 09:48 Pulse Ox 98 03/03/18 09:48 - Medical History PMH: Fractures (ribs in 2001 after fall), HTN, Hypercholesterolemia, TIA (admitted and tx last week per pt) Denies: Anxiety, HIV, Chronic Kidney Disease - Surgical History Surgical History: Appendectomy - Family History Family History: States: Hypertension - Home Medications Home Medications: Ambulatory Orders Medication Instructions Recorded RX: Atorvastatin [Lipitor] 40 mg PO DAILY #30 tab 11/26/17 RX: Clopidogrel [Plavix] 75 mg PO DAILY #30 tab 11/26/17 RX: Losartan [Cozaar] 50 mg PO HS #30 tab 11/26/17 RX: Aspirin [Aspirin Chewable] 81 mg PO DAILY 12/05/17 RX: Cyclobenzaprine [Flexeril] 5 mg PO HS 12/05/17 RX: Vitamin E [Vitamin E 400 Units 1 cap PO DAILY 12/05/17 Cap] - Allergies Allergies/Adverse Reactions: Allergies Allergy/AdvReac Type Severity Reaction Status Date / Time egg Allergy RASH Verified 01/15/18 09:14 cortisone AdvReac RASH Verified 01/15/18 09:14 Review of Systems ROS Statement: Except As Marked, All Systems Reviewed And Found Negative Constitutional: Negative for: Fever Cardiovascular: Positive for: Palpitations. Negative for: Chest Pain Respiratory: Negative for: Shortness of Breath Gastrointestinal: Negative for: Abdominal Pain Genitourinary Male: Negative for: Dysuria Musculoskeletal: Negative for: Neck Pain Skin: Negative for: Rash, Lesions Neurological: Positive for: Dizziness. Negative for: Weakness, Numbness, Change in Speech, Confusion, Seizures, Headache Psych: Negative for: Depression Physical Exam - Reviewed Nursing Documentation Reviewed: Yes Vital Signs Reviewed: Yes - Physical Exam Appears: Positive for: Non-toxic (anxious appearing), No Acute Distress Head Exam: Positive for: ATRAUMATIC, NORMAL INSPECTION, NORMOCEPHALIC Skin: Positive for: Normal Color, Warm, DRY Eye Exam: Positive for: EOMI, Normal appearance, PERRL ENT: Positive for: Normal ENT Inspection Neck: Positive for: Normal, Painless ROM Cardiovascular/Chest: Positive for: Regular Rate, Rhythm Respiratory: Positive for: CNT, Normal Breath Sounds Gastrointestinal/Abdominal: Positive for: Normal Exam, Soft Back: Positive for: Normal Inspection Extremity: Positive for: Normal ROM Neurologic/Psych: Positive for: Alert, Oriented, Other (using cell phone without difficulty). Negative for: Motor/Sensory Deficits - Laboratory Results Result Diagrams: 03/03/18 10:10 03/03/18 10:10 - ECG ECG: Positive for: Interpreted By Me ECG Rhythm: Positive for: Sinus Rhythm, Nonspecific Changes Rate: 75 O2 Sat by Pulse Oximetry: 98 Pulse Ox Interpretation: Normal Medical Decision Making Medical Decision Makin --Labs reviewed and found unremarkable, Troponin is negative --EKG similar to prior --Patient was given 650mg of Tylenol for headache, which resolved, and blood pressure improved without intervention. --Patient continues to deny chest pain. --Stable for discharge and instructed to follow up with Dr. Yeung and Dr. Mandel. Instructions for return are given. [address] Yeung who will see patient in his office tomorrow for medical adjustment. Disposition - Clinical Impression Clinical Impression: Elevated blood pressure reading, Palpitations - Patient ED Disposition Is Patient to be Admitted: No Counseled Patient/Family Regarding: Studies Performed, Diagnosis, Need For Foll owup - Disposition Referrals: Claude Yeung MD [Family Provider] - Star Mandel MD [Staff Provider] - Disposition: Routine/Home Disposition Time: 13:17 Condition: STABLE Additional Instructions: Take blood pressure medicines as directed, keep a list and carry with you at all times. Return to ER for any worse or new symptoms. Instructions: Palpitations, Hypertension (ED) Forms: [employer] (Maltese)
[2018-03-03 10:45] LABS: INR 1.1; PROTHROMBIN TIME 12.1 Seconds (9.8-13.1)
[2018-03-03 10:47] LABS: PARTIAL THROMBOPLASTIN TIME 29.5 Seconds (25.6-37.1)
[2018-03-03 10:54] LABS: ALB/GLOB RATIO 1.1 (1.0-2.1); ALBUMIN 3.9 g/dL (3.5-5.0); ALT/SGPT 30 U/L (21-72); AST/SGOT 25 U/L (17-59); BLOOD UREA NITROGEN 15 mg/dl (9-20); CALCIUM 9.4 mg/dL (8.4-10.2); GFR NON-AFRICAN AMERICAN > 60
[2018-03-03 11:02] LABS: BASO % 0.8 % (0.0-2.0); EOS # 0.2 K/uL (0.0-0.7); EOS % 3.8 % (0.0-4.0); HEMOGLOBIN 14.9 g/dL (12.0-18.0); LYMPH # 1.3 K/uL (1.0-4.3); LYMPH % 25.6 % (20.0-40.0); MEAN CELL VOLUME 88.5 fl (80.0-94.0); MEAN CORPUSCULAR HEMOGLOBIN 29.2 pg (27.0-31.0); MEAN PLATELET VOLUME 11.8 fl (7.2-11.7); MONO # 0.4 K/uL (0.0-0.8); MONO % 8.5 % (0.0-10.0); NEUT % 61.3 % (50.0-75.0); RBC 5.09 Mil/uL (4.40-5.90); RED CELL DISTRIBUTION WIDTH 14.2 % (11.5-14.5)
[2018-03-03 13:26] VITALS: BP 132/72; RESP 18
--- NOTE | 2018-03-04 07:13 | CARD ---
APPROVED REPORT Date of service: 03/03/2018 EKG Measurement Heart [id number] <Conclusion> Normal sinus rhythm Normal Electrocardiogram
[2018-03-08 22:42] VITALS: PULSE 75; O2SAT 98
== END 2018-03-03 13:25 | disposition home or self-care (01) ==
LOC: H.ER 09:28
DX: I10 Essential (primary) hypertension (principal); R00.2 Palpitations

== ENCOUNTER 2018-04-12 21:37 | Observation (INO) | payer BC ==
[2018-04-12 21:37] VITALS: BMI 28.1
[2018-04-12 22:47] LABS: BASO # 0.1 K/uL (0.0-0.2); BASO % 1.3 % (0.0-2.0); EOS # 0.3 K/uL (0.0-0.7); EOS % 3.8 % (0.0-4.0); HEMOGLOBIN 14.2 g/dL (12.0-18.0); LYMPH # 2.1 K/uL (1.0-4.3); LYMPH % 32.4 % (20.0-40.0); MEAN CELL VOLUME 88.4 fl (80.0-94.0); MEAN CORPUSCULAR HEMOGLOBIN 29.2 pg (27.0-31.0); MEAN PLATELET VOLUME 10.9 fl (7.2-11.7); MONO # 0.6 K/uL (0.0-0.8); MONO % 9.7 % (0.0-10.0); NEUT # 3.5 K/uL (1.8-7.0); NEUT % 52.8 % (50.0-75.0); RBC 4.85 Mil/uL (4.40-5.90); RED CELL DISTRIBUTION WIDTH 14.8 % (11.5-14.5); WHITE BLOOD COUNT 6.6 K/uL (4.8-10.8)
[2018-04-12 22:48] LABS: VENOUS BLOOD GAS BASE EXCESS 1.2 mmol/L (0.0-2.0); VENOUS BLOOD GAS PCO2 44 mmHg (40-60); VENOUS BLOOD GAS PO2 58 mm/Hg (30-55); VENOUS BLOOD PH 7.39 (7.32-7.43)
[2018-04-12 22:55] LABS: PROTHROMBIN TIME 11.8 Seconds (9.8-13.1)
[2018-04-12 22:58] LABS: BLOOD UREA NITROGEN 22 mg/dl (9-20); CALCIUM 9.1 mg/dL (8.4-10.2); GFR NON-AFRICAN AMERICAN > 60; PARTIAL THROMBOPLASTIN TIME 29.3 Seconds (25.6-37.1)
[2018-04-12 23:10] LABS: B-TYPE NATRIURETIC PEPTIDE 120 pg/ml (0-900)
--- NOTE | 2018-04-12 23:14 | ED PDOC ---
HPI: Chest Pain Time Seen by Provider: 04/12/18 21:54 Chief Complaint (Nursing): Chest Pain Chief Complaint (Provider): Chest Pain History Per: Patient History/Exam Limitations: no limitations Onset/Duration Of Symptoms: Sudden Onset (at 21:30) Current Symptoms Are (Timing): Still Present Additional Complaint(s): Mario Judd is a 67 year old male with a past medical history of stroke who presents to the Emergency department with sudden onset of chest pain at 21:30. P atient states the pain is severe and rated at 8/10, crushing and non radiating. During this time, patient states with onset of pain he also had a headache and felt he lost vision when he presented to the ED. He reports he is compliant with his blood pressure medication and that when the pain started he took 100 mg losartan and a baby aspirin. Patient has no previous history of CAD or heart problems. 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), HTN, Hypercholesterolemia, TIA Denies: Anxiety, HIV, Chronic Kidney Disease - Surgical History Surgical History: Appendectomy - Family History Family History: States: Hypertension - Home Medications Home Medications: Ambulatory Orders Medication Instructions Recorded RX: Atorvastatin [Lipitor] 40 mg PO DAILY #30 tab 11/26/17 RX: Clopidogrel [Plavix] 75 mg PO DAILY #30 tab 11/26/17 RX: Losartan [Cozaar] 50 mg PO HS #30 tab 11/26/17 RX: Aspirin [Aspirin Chewable] 81 mg PO DAILY 12/05/17 RX: Cyclobenzaprine [Flexeril] 5 mg PO HS 12/05/17 RX: Vitamin E [Vitamin E 400 Units 1 cap PO DAILY 12/05/17 Cap] - Allergies Allergies/Adverse Reactions: Allergies Allergy/AdvReac Type Severity Reaction Status Date / Time egg Allergy RASH Verified 01/15/18 09:14 cortisone AdvReac RASH Verified 01/15/18 09:14 Review of Systems ROS Statement: Except As Marked, All Systems Reviewed And Found Negative Cardiovascular: Positive for: Chest Pain Neurological: Positive for: Headache Physical Exam - Reviewed Nursing Documentation Reviewed: Yes Vital Signs Reviewed: Yes - Physical Exam Appears: Positive for: Uncomfortable Head Exam: Positive for: ATRAUMATIC, NORMOCEPHALIC Cardiovascular/Chest: Positive for: Bradycardia, Other (hypertensive) Respiratory: Positive for: Normal Breath Sounds, Other (Saturation is normal). Negative for: Respiratory Distress Neurologic/Psych: Positive for: Alert, Oriented. Negative for: Motor/Sensory Deficits - Laboratory Results Result Diagrams: 04/12/18 22:34 04/12/18 22:34 - ECG ECG Rhythm: Positive for: Sinus Bradycardia O2 Sat by Pulse Oximetry: 97 Medical Decision Making Medical Decision Making: Time: 21:55 A/P: Work up for acute chest pain, troponins, morphine for pain, blood pressure is already comign down since triage and will hold off on blood pressure medication. CT scan of brain to rule out neurological symptoms. Will reassess patient. 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 Old large lacunar infarct is noted involving right internal capsule, stable. VENTRICLES: There is generalized parenchymal atrophy noted as demonstrated by symmetrical dilatation of ventricles and sulci. ORBITS: The orbits are unremarkable. SINUSES AND MASTOIDS: The paranasal sinuses and mastoid air cells are clear. BONES: No fracture. SOFT TISSUES: Unremarkable. MISCELLANEOUS: No acute intracranial pathology and no interval change. IMPRESSION: 1. There is generalized parenchymal atrophy noted as demonstrated by symmetrical dilatation of ventricles and sulci. 2. Chronic periventricular and subcortical microvascular disease is seen. 3. Old large lacunar infarct is noted involving right internal capsule, stable. 4. No acute intracranial pathology and no interval change. 12:12 Pt with no acute changes on CT Brain. Pt with negative troponin. Pain mildly improved. Spoke to Dr. Maldonado and pt to be admitted to telemetry with troponins q8. Scribe Attestation: Documented by Wilver Rowan , acting as a scribe for Maria G Mir MD. Provider Scribe Attestation: All medical record entries made by the Scribe were at my direction and personally dictated by me. I have reviewed the chart and agree that the record accurately reflects my personal performance of the history, physical exam, medical decision making, and the department course for this patient. I have also personally directed, reviewed, and agree with the discharge instructions and disposition. Disposition - Clinical Impression Clinical Impression: Acute chest pain, Headache, Hypertensive urgency - Disposition Disposition Time: 00:14 Condition: GUARDED Forms: [employer] (Italian)
--- NOTE | 2018-04-13 09:06 | CP.PCM.HP ---
Past Patient History - Infectious Disease Hx of Infectious Diseases: None - Past Medical History & Family History Past Medical History?: Yes - Past Social History Smoking Status: Never Smoked - CARDIAC Hx Cardiac Disorders: Yes - PULMONARY Hx Respiratory Disorders: No - NEUROLOGICAL Hx Neurological Disorder: Yes - HEENT Hx HEENT Problems: No - RENAL Hx Chronic Kidney Disease: No - ENDOCRINE/METABOLIC Hx Endocrine Disorders: No - HEMATOLOGICAL/ONCOLOGICAL Hx Human Immunodeficiency Virus (HIV): No - INTEGUMENTARY Hx Dermatological Problems: No - MUSCULOSKELETAL/RHEUMATOLOGICAL Hx Musculoskeletal Disorders: Yes - GASTROINTESTINAL Hx Gastrointestinal Disorders: No - GENITOURINARY/GYNECOLOGICAL Hx Genitourinary Disorders: No - PSYCHIATRIC Hx Anxiety: No - SURGICAL HISTORY Hx Appendectomy: Yes - ANESTHESIA Hx Anesthesia: Yes Hx Anesthesia Reactions: No Hx Malignant Hyperthermia: No Meds Allergies/Adverse Reactions: Allergies Allergy/AdvReac Type Severity Reaction Status Date / Time egg Allergy RASH Verified 01/15/18 09:14 cortisone AdvReac RASH Verified 01/15/18 09:14 Results - Vital Signs Recent Vital Signs: Last Vital Signs Temp 97.3 F L 04/13/18 08:20 Pulse 44 L 04/13/18 08:20 Resp 20 04/13/18 08:20 BP 169/88 H 04/13/18 08:20 Pulse Ox 99 04/13/18 08:20 - Labs Result Diagrams: 04/12/18 22:34 04/12/18 22:34 Labs: Laboratory Results - last 24 hr 04/12/18 04/12/18 04/12/18 22:34 22:34 22:34 WBC 6.6 RBC 4.85 Hgb 14.2 Hct 42.9 MCV 88.4 MCH 29.2 MCHC 33.0 RDW 14.8 H Plt Count 169 MPV 10.9 Neut % (Auto) 52.8 Lymph % (Auto) 32.4 [place] % (Auto) 9.7 Eos % (Auto) 3.8 Baso % (Auto) 1.3 Neut # (Auto) 3.5 Lymph # (Auto) 2.1 [place] # (Auto) 0.6 Eos # (Auto) 0.3 Baso # (Auto) 0.1 PT 11.8 INR 1.0 APTT 29.3 pO2 VBG pH VBG pCO2 VBG HCO3 VBG Total CO2 VBG O2 Sat (Calc) VBG Base Excess VBG Potassium Glucose Lactate FiO2 Sodium 138 Potassium 3.9 Chloride 104 Carbon Dioxide 24 Anion Gap 14 BUN 22 H Creatinine 0.9 Est GFR ( Amer) > 60 Est GFR (Non-Af Amer) > 60 Random Glucose 100 Calcium 9.1 Troponin I < 0.0120 NT-Pro-B Natriuret Pep 120 Venous Blood Potassium 04/12/18 04/13/18 22:40 02:20 WBC RBC Hgb Hct MCV MCH MCHC RDW Plt Count MPV Neut % (Auto) Lymph % (Auto) [place] % (Auto) Eos % (Auto) Baso % (Auto) Neut # (Auto) Lymph # (Auto) [place] # (Auto) Eos # (Auto) Baso # (Auto) PT INR APTT pO2 58 H VBG pH 7.39 VBG pCO2 44 VBG HCO3 25.6 VBG Total CO2 28.0 VBG O2 Sat (Calc) 93.4 H VBG Base Excess 1.2 VBG Potassium 3.7 Glucose 103 Lactate 0.8 FiO2 21.0 Sodium 138.0 Potassium Chloride 106.0 Carbon Dioxide Anion Gap BUN Creatinine Est GFR ( Amer) Est GFR (Non-Af Amer) Random Glucose Calcium Troponin I 0.0120 NT-Pro-B Natriuret Pep Venous Blood Potassium 3.7
--- NOTE | 2018-04-13 09:11 | CT ---
Date of service: 04/12/2018 PROCEDURE: CT HEAD WITHOUT CONTRAST. HISTORY: Headache with previous stroke and HTN COMPARISON: None available. TECHNIQUE: Axial computed tomography images were obtained through the head/brain without intravenous contrast. Radiation dose: Total exam DLP = 829.78 mGy-cm. This CT exam was performed using one or more of the following dose reduction techniques: Automated exposure control, adjustment of the mA and/or kV according to patient size, and/or use of iterative reconstruction technique. FINDINGS: HEMORRHAGE: No intracranial hemorrhage. BRAIN: There are severe chronic microangiopathic changes. There is a chronic lacunar infarction in the right caudate head, anterior limb of internal capsule and anterior basal ganglia. There is no mass, mass effect or abnormal extra-axial fluid collection. There is no territorial infarction. The midline sagittal structures are normal. VENTRICLES: The ventricles are normal in size, shape and configuration. CALVARIUM: There is mild age-related global parenchymal volume loss and proportionate enlargement of the ventricles and cortical sulci. PARANASAL SINUSES: There is mild mucoperiosteal thickening in the ethmoid air cells and a small retention cyst/polyp in the left frontal sinus. The remaining included paranasal sinuses are clear. MASTOID AIR CELLS: Predominantly clear. OTHER FINDINGS: None. IMPRESSION: No acute intracranial abnormality. Chronic right MCA territory infarction involving the corpus striatum as described above. Severe chronic microangiopathic changes. A preliminary report was provided by [employer].
--- NOTE | 2018-04-13 09:38 | RAD ---
Date of service: 04/12/2018 HISTORY: possible admission COMPARISON: 01/15/2018. FINDINGS: LUNGS: The lungs are well inflated and clear. PLEURA: No pleural effusions or pneumothorax. There is chronic left pleural thickening. CARDIOVASCULAR: The heart is normal in size. No aortic atherosclerotic calcification present. OSSEOUS STRUCTURES: Within normal limits for the patient's age. VISUALIZED UPPER ABDOMEN: Normal. OTHER FINDINGS: None. IMPRESSION: No active pulmonary disease.
--- NOTE | 2018-04-13 10:45 | CARD ---
APPROVED REPORT Date of service: 04/12/2018 EKG Measurement Heart [id number] <Conclusion> Sinus bradycardia with sinus arrhythmia Minimal voltage criteria for LVH, may be normal variant Borderline ECG
--- NOTE | 2018-04-13 19:44 | CARD ---
APPROVED REPORT Date of service: 04/13/2018 EXAM: Two-dimensional and M-mode echocardiogram with Doppler and color Doppler. Other Information Quality : GoodRhythm : NSR INDICATION CVA/TIA Chest Pain 2D DIMENSIONS IVSd1.25 (0.7-1.1cm)LVDd4.61 (3.9-5.9cm) LVOT Diameter1.98 (1.8-2.4cm)PWd1.32 (0.7-1.1cm) IVSs1.51 (0.8-1.2cm)LVDs3.10 (2.5-4.0cm) FS (%) 32.7 %PWs1.35 (0.8-1.2cm) M-Mode DIMENSIONS Left Atrium (MM)4.53 (2.5-4.0cm)IVSd1.03 (0.7-1.1cm) Aortic Root3.38 (2.2-3.7cm)LVDd5.78 (4.0-5.6cm) Aortic Cusp Exc.1.91 (1.5-2.0cm)PWd1.00 (0.7-1.1cm) IVSs1.59 cmFS (%) 41 % LVDs3.41 (2.0-3.8cm)PWs1.59 cm Aortic Valve AoV Peak Ssothrmn777.6cm/sAoV VTI27.1cmAO Peak GR.6mmHg LVOT Peak Yzlgtwwv72.9cm/sLVOT VTI20.68cmAO Mean GR.3mmHg JAZIEL (VMAX)1.15mf5UOF (VTI)1.18cm2 Mitral Valve MV E Rycuwkqa91.8cm/sMV DECEL [id number] A Rzshgcgk06.1cm/s MV OQE03jzC/A ratio1.2MVA (PHT)3.71cm2 TDI Lateral E' Peak V7.82cm/sMedial E' Peak V8.72cm/sE/Lateral E'9.6 E/Medial E'8.6 LEFT VENTRICLE The left ventricle is normal size. There is mild concentric left ventricular hypertrophy. The left ventricular systolic function is normal. The estimated ejection fraction is 60-65% No regional wall motion abnormalities noted.. Transmitral Doppler flow pattern is Grade II-pseudonormal filling dynamics. No left ventricle thrombus noted on this study. There is no ventricular septal defect visualized. There is no left ventricular aneurysm. There is no mass noted in the left ventricle. RIGHT VENTRICLE The right ventricle is normal size. There is normal right ventricular wall thickness. The right ventricular systolic function is normal. ATRIA The left atrium is mildly dilated. The right atrium size is normal. The interatrial septum is intact with no evidence for an atrial septal defect. AORTIC VALVE The aortic valve is normal in structure. No aortic regurgitation is present. There is no aortic valvular stenosis. There is no aortic valvular vegetation. MITRAL VALVE The mitral valve is normal in structure. There is no evidence of mitral valve prolapse. There is no mitral valve stenosis. There is no mitral valve regurgitation noted. TRICUSPID VALVE The tricuspid valve is normal in structure. There is no tricuspid valve regurgitation noted. There is no tricuspid valve prolapse or vegetation. There is no tricuspid valve stenosis. PULMONIC VALVE The pulmonary valve is normal in structure. There is no pulmonic valvular regurgitation. There is no pulmonic valvular stenosis. GREAT VESSELS The aortic root is normal in size. The ascending aorta is normal in size. The pulmonary artery is normal. The IVC is normal in size and collapses >50% with inspiration. PERICARDIAL EFFUSION There is no pericardial effusion. There is no pleural effusion. <Conclusion> The estimated ejection fraction is 60-65% Transmitral Doppler flow pattern is Grade II-pseudonormal filling dynamics. The left atrium is mildly dilated. There is no tricuspid valve regurgitation noted.
--- NOTE | 2018-04-13 19:44 | CP.PCM.CON ---
History of Present Illness - History of Present Illness History of Present Illness: I was asked to see patinet by DR Ellis. Patient seen 04/13/181919 Patient is a 67 yea rold male with HTN, bradycardia who presents with headache. he was fond to have uncontrolled hypertension. The patient was also found to be bradycardic. He denies current chest pain Review of Systems - Constitutional Constitutional: absent: As Per HPI, Anorexia, Chills, Daytime Sleepiness, Excessive Sweating, Fatigue, Fever, Frequent Falls, Headache, Increased Appetite, Lethargy, Malaise, Night Sweats, Snoring, Sleep Apnea, Weight Gain, Weight Loss, Weakness, Other - EENT Eyes: absent: As Per HPI, Blind Spots, Blurred Vision, Change in Vision, Decreased Night Vision, Diplopia, Discharge, Dry Eye, Exophthalmos, Floaters, Irritation, Itchy Eyes, Loss of Peripheral Vision, Pain, Photophobia, Requires Corrective Lenses, Sees Flashes, Spots in Vision, Tunnel Vision, Other Visual Disturbances, Loss of Vision, Other Ears: absent: As Per HPI, Decreased Hearing, Ear Discharge, Ear Pain, Tinnitus, Abnormal Hearing, Disequilibrium, Dizziness, Other Nose/Mouth/Throat: absent: As Per HPI, Epistaxis, Nasal Congestion, Nasal Discharge, Nasal Obstruction, Nasal Trauma, Nose Pain, Post Nasal Drip, Sinus Pain, Sinus Pressure, Bleeding Gums, Change in Voice, Dental Pain, Dry Mouth, Dysphagia, Halitosis, Hoarsness, Lip Swelling, Mouth Lesions, Mouth Pain, Odynophagia, Sore Throat, Throat Swelling, Tongue Swelling, Facial Pain, Neck Pain, Neck Mass, Other - Cardiovascular Cardiovascular: Slow Heart Rate - Respiratory Respiratory: absent: As Per HPI, Cough, Dyspnea, Hemoptysis, Dyspnea on Exertion, Wheezing, Snoring, Stridor, Pain on Inspiration, Chest Congestion, Excessive Mucous Production, Change in Mucous Color, Pain with Coughing, Other - Gastrointestinal Gastrointestinal: absent: As Per HPI, Abdominal Pain, Belching, Bloating, Change in Bowel Habits, Change in Stool Character, Coffee Ground Emesis, Constipation, Cramping, Diarrhea, Dyspepsia, Dysphagia, Early Satiety, Excessive Flatus, Fecal Incontinence, Heartburn, Hematemesis, Hematochezia, Loose Stools, Melena, Nausea, Odynophagia, Temesmus, Vomiting, Other - Genitourinary Genitourinary: absent: As Per HPI, Change in Urinary Stream, Difficulty Urinating, Dysuria, Flank Pain, Hematuria, Pyuria, Nocturia, Urinary Incontinence, Urinary Frequency, Urinary Hesitance, Urinary Urgency, Voiding Freq/Small Amts, Freq UTI, Hx Renal/Bladder Calculi, Hx /Renal Surgery, Bladder Distension, Other - Musculoskeletal Musculoskeletal: absent: As Per HPI, Abnormal Gait, Arthralgias, Atrophy, Back Pain, Deformity, Joint Swelling, Limited Range of Motion, Loss of Height, Muscle Cramps, Muscle Weakness, Myalgias, Neck Pain, Numbness, Radiating Pain into Limb, Stiffness, Tingling, Other - Integumentary Integumentary: absent: As Per HPI, Acne, Alopecia, Bleeding Lesions, Change in Hair, Change in Nails, Change in Pigmentation, Changing Lesions, Dry Skin, Erythema, Furuncle, Hirsutism, Lesions, New Lesions, Non-Healing Lesions, Photosensitivity, Pruritus, Rash, Skin Pain, Skin Ulcer, Sores, Striae, Swelling, Unusual Bruising, Wounds, Jaundice, Other - Neurological Neurological: absent: As Per HPI, Abnormal Gait, Abnormal Hearing, Abnormal Mo vements, Abnormal Speech, Behavioral Changes, Burning Sensations, Confusion, Convulsions, Disequilibrium, Dizziness, Numbness, Focal Weakness, Frequent Falls, Headaches, Lack of Coordination, Loss of Vision, Memory Loss, Paresthesias, Radicular Pain, Restless Legs, Sensory Deficit, Syncope, Tingling, Tremor, Vertigo, Weakness, Other Visual Disturbances, Other - Psychiatric Psychiatric: absent: As Per HPI, Abnormal Sleep Pattern, Anhedonia, Anxiety, Auditory Hallucinations, Behavioral Changes, Change in Appetite, Change in Libido, Confusion, Depression, Difficulty Concentrating, Hallucinations, Homicidal Ideation, Hopelessness, Irritability, Memory Loss, Mood Swings, Panic Attacks, Paranoia, Suicidal Ideation, Visual Hallucinations, Tactile Hallucinati ons, Other - Endocrine Endocrine: absent: As Per HPI, Change in Body Appearance, Change in Libido, Cold Intolorance, Deepening of Voice, Excessive Sweating, Fatigue, Flushing, Heat Intolorance, Increase in Ring/Shoe/Hat Size, Palpitations, Polydipsia, Polyphagi a, Polyuria, Other - Hematologic/Lymphatic Hematologic: absent: As Per HPI, Easy Bleeding, Easy Bruising, Lymphadenopathy, Other Past Patient History - Infectious Disease Hx of Infectious Diseases: None - Past Medical History & Family History Past Medical History?: Yes - Past Social History Smoking Status: Never Smoked - CARDIAC Hx Cardiac Disorders: Yes - PULMONARY Hx Respiratory Disorders: No - NEUROLOGICAL Hx Neurological Disorder: Yes - HEENT Hx HEENT Problems: No - RENAL Hx Chronic Kidney Disease: No - ENDOCRINE/METABOLIC Hx Endocrine Disorders: No - HEMATOLOGICAL/ONCOLOGICAL Hx Human Immunodeficiency Virus (HIV): No - INTEGUMENTARY Hx Dermatological Problems: No - MUSCULOSKELETAL/RHEUMATOLOGICAL Hx Musculoskeletal Disorders: Yes - GASTROINTESTINAL Hx Gastrointestinal Disorders: No - GENITOURINARY/GYNECOLOGICAL Hx Genitourinary Disorders: No - PSYCHIATRIC Hx Anxiety: No - SURGICAL HISTORY Hx Appendectomy: Yes - ANESTHESIA Hx Anesthesia: Yes Hx Anesthesia Reactions: No Hx Malignant Hyperthermia: No Meds Allergies/Adverse Reactions: Allergies Allergy/AdvReac Type Severity Reaction Status Date / Time guido Allergy RASH Verified 04/13/18 12:54 egg Allergy RASH Verified 01/15/18 09:14 cortisone AdvReac RASH Verified 01/15/18 09:14 cow milk Allergy RASH Uncoded 04/13/18 12:53 - Medications Medications: Current Medications Amlodipine Besylate (Norvasc) 10 mg PO DAILY [facility] Aspirin (Aspirin Chewable) 81 mg PO DAILY [facility] Last Admin: 04/13/18 10:59 Dose: 81 mg Hydralazine HCl (Apresoline) 50 mg PO Q8 [facility] Isosorbide Mononitrate (Imdur Er) 120 mg PO DAILY [facility] Losartan Potassium (Cozaar) 50 mg PO HS [facility] Last Admin: 04/13/18 13:38 Dose: 50 mg Losartan Potassium (Cozaar) 100 mg PO DAILY [facility] Physical Exam - Constitutional Appears: Non-toxic - Head Exam Head Exam: NORMAL INSPECTION - Eye Exam Eye Exam: Normal appearance - ENT Exam ENT Exam: Mucous Membranes Moist - Neck Exam Neck exam: Positive for: Full Rom, Normal Inspection - Respiratory Exam Respiratory Exam: Clear to Auscultation Bilateral, NORMAL BREATHING PATTERN - Cardiovascular Exam Cardiovascular Exam: Bradycardia, REGULAR RHYTHM - GI/Abdominal Exam GI & Abdominal Exam: Normal Bowel Sounds - Rectal Exam Rectal Exam: Deferred - Extremities Exam Extremities exam: Positive for: normal inspection. Negative for: pedal edema - Back Exam Back exam: NORMAL INSPECTION - Neurological Exam Neurological exam: Alert, Oriented x3 - Psychiatric Exam Psychiatric exam: Normal Affect - Skin Skin Exam: Normal Color Results - Vital Signs Recent Vital Signs: Last Vital Signs Temp 98.2 F 04/13/18 16:37 Pulse 49 L 04/13/18 18:35 Resp 20 04/13/18 16:37 BP 194/89 H 04/13/18 18:35 Pulse Ox 98 04/13/18 16:37 - Labs Result Diagrams: 04/12/18 22:34 04/12/18 22:34 Labs: Laboratory Results - last 24 hr 04/12/18 04/12/18 04/12/18 22:34 22:34 22:34 WBC 6.6 RBC 4.85 Hgb 14.2 Hct 42.9 MCV 88.4 MCH 29.2 MCHC 33.0 RDW 14.8 H Plt Count 169 MPV 10.9 Neut % (Auto) 52.8 Lymph % (Auto) 32.4 [place] % (Auto) 9.7 Eos % (Auto) 3.8 Baso % (Auto) 1.3 Neut # (Auto) 3.5 Lymph # (Auto) 2.1 [place] # (Auto) 0.6 Eos # (Auto) 0.3 Baso # (Auto) 0.1 PT 11.8 INR 1.0 APTT 29.3 pO2 VBG pH VBG pCO2 VBG HCO3 VBG Total CO2 VBG O2 Sat (Calc) VBG Base Excess VBG Potassium Glucose Lactate FiO2 Sodium 138 Potassium 3.9 Chloride 104 Carbon Dioxide 24 Anion Gap 14 BUN 22 H Creatinine 0.9 Est GFR ( Amer) > 60 Est GFR (Non-Af Amer) > 60 Random Glucose 100 Calcium 9.1 Troponin I < 0.0120 NT-Pro-B Natriuret Pep 120 TSH 3rd Generation Venous Blood Potassium 04/12/18 04/13/18 04/13/18 22:40 02:20 10:30 WBC RBC Hgb Hct MCV MCH MCHC RDW Plt Count MPV Neut % (Auto) Lymph % (Auto) [place] % (Auto) Eos % (Auto) Baso % (Auto) Neut # (Auto) Lymph # (Auto) [place] # (Auto) Eos # (Auto) Baso # (Auto) PT INR APTT pO2 58 H VBG pH 7.39 VBG pCO2 44 VBG HCO3 25.6 VBG Total CO2 28.0 VBG O2 Sat (Calc) 93.4 H VBG Base Excess 1.2 VBG Potassium 3.7 Glucose 103 Lactate 0.8 FiO2 21.0 Sodium 138.0 Potassium Chloride 106.0 Carbon Dioxide Anion Gap BUN Creatinine Est GFR ( Amer) Est GFR (Non-Af Amer) Random Glucose Calcium Troponin I 0.0120 < 0.0120 NT-Pro-B Natriuret Pep TSH 3rd Generation 0.83 Venous Blood Potassium 3.7 - EKG Data EKG Interpreted by: Myself EKG shows normal: Sinus rhythm Assessment & Plan (1) Hypertensive urgency Assessment and Plan: patient will need aggressive blood pressure control. medications prescribed. cannot give betablocker due to bradycardia. Status: Acute (2) Bradycardia Assessment and Plan: asymptomatic. will avoid aV jeimy jovana Status: Acute
[2018-04-14 05:20] VITALS: O2SAT 98
[2018-04-14 10:00] VITALS: RESP 20
--- NOTE | 2018-04-14 15:01 | CP.PCM.DIS ---
Provider - Provider Date of Admission: 04/13/18 03:49 Attending physician: Slick Ellis MD Consults: 04/13/18 09:01 Cardiology Consult Routine Comment: Consulting Provider: Star Mandel Consulting Physician: Star Mandel Reason for Consult: bradycardia, chest pain Time Spent in preparation of Discharge (in minutes): 35 Diagnosis - Discharge Diagnosis (1) Acute chest pain Status: Resolved (2) Hypertensive urgency Status: Resolved Hospital Course - Lab Results Lab Results: Most Recent Lab Values WBC 6.6 K/uL (4.8-10.8) 04/12/18 22:34 RBC 4.85 Mil/uL (4.40-5.90) 04/12/18 22:34 Hgb 14.2 g/dL (12.0-18.0) 04/12/18 22:34 Hct 42.9 % (35.0-51.0) 04/12/18 22:34 MCV 88.4 fl (80.0-94.0) 04/12/18 22:34 MCH 29.2 pg (27.0-31.0) 04/12/18 22:34 MCHC 33.0 g/dL (33.0-37.0) 04/12/18 22:34 RDW 14.8 % (11.5-14.5) H 04/12/18 22:34 Plt Count 169 K/uL (130-400) 04/12/18 22:34 MPV 10.9 fl (7.2-11.7) 04/12/18 22:34 Neut % (Auto) 52.8 % (50.0-75.0) 04/12/18 22:34 Lymph % (Auto) 32.4 % (20.0-40.0) 04/12/18 22:34 [place] % (Auto) 9.7 % (0.0-10.0) 04/12/18 22:34 Eos % (Auto) 3.8 % (0.0-4.0) 04/12/18 22:34 Baso % (Auto) 1.3 % (0.0-2.0) 04/12/18 22:34 Neut # (Auto) 3.5 K/uL (1.8-7.0) 04/12/18 22:34 Lymph # (Auto) 2.1 K/uL (1.0-4.3) 04/12/18 22:34 [place] # (Auto) 0.6 K/uL (0.0-0.8) 04/12/18 22:34 Eos # (Auto) 0.3 K/uL (0.0-0.7) 04/12/18 22:34 Baso # (Auto) 0.1 K/uL (0.0-0.2) 04/12/18 22:34 PT 11.8 Seconds (9.8-13.1) 04/12/18 22:34 INR 1.0 04/12/18 22:34 APTT 29.3 Seconds (25.6-37.1) 04/12/18 22:34 pO2 58 mm/Hg (30-55) H 04/12/18 22:40 VBG pH 7.39 (7.32-7.43) 04/12/18 22:40 VBG pCO2 44 mmHg (40-60) 04/12/18 22:40 VBG HCO3 25.6 mmol/L 04/12/18 22:40 VBG Total CO2 28.0 mmol/L (22-28) 04/12/18 22:40 VBG O2 Sat (Calc) 93.4 % (40-65) H 04/12/18 22:40 VBG Base Excess 1.2 mmol/L (0.0-2.0) 04/12/18 22:40 VBG Potassium 3.7 mmol/L (3.6-5.2) 04/12/18 22:40 Sodium 138.0 mmol/L (132-148) 04/12/18 22:40 Chloride 106.0 mmol/L (98-107) 04/12/18 22:40 Glucose 103 mg/dL (75-110) 04/12/18 22:40 Lactate 0.8 mmol/L (0.7-2.1) 04/12/18 22:40 FiO2 21.0 % 04/12/18 22:40 Sodium 138 mmol/l (132-148) 04/12/18 22:34 Potassium 3.9 MMOL/L (3.6-5.0) 04/12/18 22:34 Chloride 104 mmol/L (98-107) 12/09/18 22:34 Carbon Dioxide 24 mmol/L (22-30) 04/12/18 22:34 Anion Gap 14 (10-20) 04/12/18 22:34 BUN 22 mg/dl (9-20) H 04/12/18 22:34 Creatinine 0.9 mg/dl (0.8-1.5) 04/12/18 22:34 Est GFR ( Amer) > 60 04/12/18 22:34 Est GFR (Non-Af Amer) > 60 04/12/18 22:34 Random Glucose 100 mg/dL (75-110) 04/12/18 22:34 Calcium 9.1 mg/dL (8.4-10.2) 04/12/18 22:34 Troponin I < 0.0120 ng/mL (0.00-0.120) 04/14/18 01:42 NT-Pro-B Natriuret Pep 120 pg/ml (0-900) 04/12/18 22:34 TSH 3rd Generation 0.83 mIU/ML (0.46-4.68) 04/13/18 10:30 Venous Blood Potassium 3.7 mmol/L (3.6-5.2) 04/12/18 22:40 - Hospital Course Hospital Course: Pt is a 67 y/o male who presented to [facility] ed with complaitns of chest pain and was found to have hypertensive urgency with systolic blood pressure 220's. He had EKG which showed LVH but no ischemic changes and Echo completed that was significant for Grade II diastolic dysfunction and preserved EF. Serial troponins x3 were negative and TSH was wnl. He was treated with antihypertensive medication including metoprolol, norvasc, and isosoribid mononitrate, and losartan. He was evaluated by Cardiology who cleared him for discharge to home upon stabilization of his blood pressures and recommended to avoid AV blockade as patient's heart rate was noted to be low. He was discharged on Norvasc, Hydralazin, Isosorbid Mononitrate, and Losartan. On day of discharge, pt was evalauted at the bedside with Dr. Ellis and was asymptomatic. Discharge Exam - Head Exam Head Exam: NORMAL INSPECTION - Eye Exam Eye Exam: Normal appearance - ENT Exam ENT Exam: Mucous Membranes Moist - Respiratory Exam Respiratory Exam: Clear to PA & Lateral. absent: Accessory Muscle Use, Rales, Wheezes - Cardiovascular Exam Cardiovascular Exam: REGULAR RHYTHM, RRR, +S1, +S2. absent: Clicks, Gallop, Systolic Murmur - Extremities Exam Extremities exam: normal inspection - Neurological Exam Neurological exam: Alert - Psychiatric Exam Psychiatric exam: Normal Affect - Skin Skin Exam: Normal Color Discharge Plan - Discharge Medications Prescriptions: amLODIPine [Norvasc] 10 mg PO DAILY #30 tab hydrALAZINE [Apresoline] 50 mg PO Q8 #60 tab Isosorbide Mononitrate [Imdur] 120 mg PO DAILY #60 tab Losartan [Cozaar] 100 mg PO DAILY@0900 #30 tab - Follow Up Plan Condition: GUARDED Disposition: HOME/ ROUTINE Instructions: High Blood Pressure (DC), Chest Pain (DC), Bradycardia (DC) Additional Instructions: follow up with dr yeung in 1 week Referrals: Claude Yeung MD [Family Provider] - Star Mandel MD [Staff Provider] -
[2018-04-14 16:14] VITALS: BP 121/71; PULSE 57; TEMP 98.3
== END 2018-04-14 16:00 | disposition home or self-care (01) ==
LOC: H.ER 21:37 → H.ERHOLD 04-13 03:49 → H.TEL 04-13 07:24
PROVIDERS: ADMIT Family Medicine; ATTEND Family Medicine
DX: I16.0 Hypertensive urgency (principal); R00.1 Bradycardia, unspecified; I10 Essential (primary) hypertension; R51 Headache; E78.00 Pure hypercholesterolemia, unspecified; Z86.73 Personal history of transient ischemic attack (TIA), and cerebral infarction without residual deficits; Z91.012 Allergy to eggs; Z91.011 Allergy to milk products
CPT/HCPCS: 36415; 70450; 71045; 80048; 82803; 83880; 84443; 84484; 85025; 85610; 85730; 93005; 93306; 96374; 99285; G0378; J1885; J2270